=== PATIENT | female | born 1950 | race Caucasian/White ===

== ENCOUNTER 2016-11-14 14:55 | Emergency (ER) | payer OTHER, MEDICARE ==
[~2016-11-14] VITALS: Ht 147.3 cm; Wt 70.5 kg
[~2016-11-14 14:55] MED LIST: ALPH200C3 PO; B-COCAP9 PO; COZA50TA PO; CYCL1PAK PO; GLUCTAB PO; LEVA500T PO; LORTA5 PO; MAGN250T13 PO; TRAD5TAB PO; VITA-13 PO
[2016-11-14 15:17] VITALS: BP 139/75; PULSE 84; RESP 16; TEMP 98.7; O2SAT 96
[2016-11-14] MEDS ORDERED: MAGN250T2 PO (15:47)
[2016-11-14] MEDS ORDERED: B-COCAP9 PO (15:47)
[2016-11-14] MEDS ORDERED: METF500T4 PO (15:47)
[2016-11-14] MEDS ORDERED: LOSA50TA PO (15:47)
[2016-11-14] MEDS ORDERED: TRAD5TAB PO (15:47)
[2016-11-14] MEDS ORDERED: [UNRECOGNIZED DRUG - CODE] PO (15:48)
[2016-11-14] MEDS ORDERED: CHOL100025 CHEW (15:48)
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
== END 2016-11-14 17:30 | disposition home or self-care (01) ==
LOC: PHED 14:55
DX: S20.211A Contusion of right front wall of thorax, initial encounter (principal); V03.99XA Pedestrian with other conveyance injured in collision with car, pick-up truck or van, unspecified whether traffic or nontraffic accident, initial encounter; Y92.410 Unspecified street and highway as the place of occurrence of the external cause
CPT/HCPCS: 71010; 99283

== ENCOUNTER 2017-06-26 14:49 | Inpatient (IN) | payer MEDICARE, OTHER ==
[~2017-06-26] VITALS: Ht 144.8 cm; Wt 77.6 kg
[2017-06-26] VITALS (9 sets, daily range): BP systolic 136–152; BP diastolic 60–82; PULSE 80–90; RESP 16–24; TEMP 97.8–98.2; O2SAT 94–98
[~2017-06-26 14:49] MED LIST changes: -ALPH200C3 PO; +CHOL100025 CHEW; -COZA50TA PO; -CYCL1PAK PO; -GLUCTAB PO; -LEVA500T PO; -LORTA5 PO; +LOSA50TA PO; -MAGN250T13 PO; +MAGN250T2 PO; +METF500T4 PO; -VITA-13 PO; +[UNRECOGNIZED DRUG - CODE] PO
[2017-06-26] MEDS ORDERED: SODIUM CHLOR 0.9% 1000 ML INJ 1,000 ML IV ONE (14:52)
--- NOTE | 2017-06-26 15:00 | PD ---
HPI Chief Complaint: Neuro Symptoms/ Deficits Time Seen by Provider: 14:52 Travel History International Travel<30 days: No Contact w/Intl Traveler<30days: No Traveled to known affect area: No History of Present Illness HPI 67-year-old female patient with history of spina bifida, wheelchair bound, diabetes, hypertension, presents to the ER today brought in by EMS as a stroke alert, apparently has had a right arm weakness that started at about 1 PM. She apparently felt like she was having trouble speaking as well. She used her motorized wheelchair to get to the urgent care center and they called EMS. She has trouble moving both legs but that is chronic. She reports a headache but denies any other issues. She denies any previous history of right arm weakness. She does not know any exacerbating or alleviating factors. Modifying Factors: None Associated Signs & Symptoms: Right arm weakness, stroke alert Risk Factors: Diabetic, hypertension, spina bifida PFSH Past Medical History Hx Anticoagulant Therapy: No Arthritis: Yes Asthma: No Autoimmune Disease: No Blood Disorders: No Anxiety: No Depression: No Heart Rhythm Problems: No Cancer: No Cardiovascular Problems: Yes (htn on meds) High Cholesterol: No Chemotherapy: No Chest Pain: No Congestive Heart Failure: No COPD: No Cerebrovascular Accident: No Diabetes: Yes (type 2) Endocrine: Yes Gastrointestinal Disorders: Yes (UMBILICAL HERNIA) GERD: Yes Genitourinary: Yes Hepatitis: No Hiatal Hernia: No Hypertension: Yes Immune Disorder: No Kidney Stones: Yes Musculoskeletal: Yes (SCOLIOSIS, 10 VERTEBRAL FUSION, LEFT HIP DISLOCATION) Neurologic: Yes (SPINA BIFIDA) Psychiatric: No Reproductive: No Respiratory: No Migraines: No Radiation Therapy: No Renal Failure: No Seizures: No Sickle Cell Disease: No Sleep Apnea: No Thyroid Disease: No Ulcer: No Menopausal: Yes Past Surgical History Abdominal Surgery: Yes (APPENDECTOMY) AICD: No Appendectomy: Yes Arteriovenous Shunt: No Body Medical Devices: BILATERAL ANKLE ORIF Cardiac Surgery: No Ear Surgery: No Endocrine Surgery: No Eye Surgery: No Genitourinary Surgery: No Gynecologic Surgery: No Insulin Pump: No Joint Replacement: No Neurologic Surgery: Yes (BILATERAL CARPAL TUNNEL SURGERY, spina bifida SX as ) Oral Surgery: No Pacemaker: No Thoracic Surgery: No Other Surgery: Yes (LT WRIST CARPAL TUNNEL, left ankle fx with mary jane placement) Social History Alcohol Use: Yes (Social) Tobacco Use: No Substance Use: No Allergies-Medications (Allergen,Severity, Reaction): Coded Allergies: ciprofloxacin (Unverified Allergy, Severe, Diarrhea, 06/26/17) latex (Unverified Allergy, Severe, Rash, 06/26/17) tetanus immune globulin (Unverified Allergy, Severe, 06/26/17) ARM "BLEW UP", PAIN IN ARM cephalexin (Unverified Adverse Reaction, Intermediate, DIARRHEA, 06/26/17) Reported Meds & Prescriptions Reported Meds & Active Scripts Active Reported Lipoic Acid (Alpha Lipoic Acid) 150 Mg Cap 100 Mg PO DAILY Vitamin D3 (Cholecalciferol) 1,000 Unit Chew 1,000 Units CHEW DAILY Super B-Complex (B-Complex W/Biotin & Folic Acid) 1 Cap 1 Cap PO DAILY Magnesium 250 Mg Tab 250 Mg PO DAILY Metformin ER (Metformin HCl) 500 Mg Eric 500 Mg PO DAILY With evening meal Tradjenta (Linagliptin) 5 Mg Tab 5 Mg PO DAILY Losartan (Losartan Potassium) 50 Mg Tab 50 Mg PO DAILY Review of Systems Except as stated in HPI: all other systems reviewed are Neg Physical Exam Narrative GENERAL: Elderly white female patient who is wheelchair-bound, with atrophied bilateral lower extremities, currently awake, alert, oriented 3, in moderate distress. SKIN: Focused skin assessment warm/dry. HEAD: Atraumatic. Normocephalic. EYES: Pupils equal and round. No scleral icterus. No injection or drainage. ENT: No nasal bleeding or discharge. Mucous membranes pink and moist. NECK: Trachea midline. No JVD. CARDIOVASCULAR: Regular rate and rhythm. No murmur appreciated. Pulses are present and equal bilaterally. RESPIRATORY: No accessory muscle use. Clear to auscultation. Breath sounds equal bilaterally. GASTROINTESTINAL: Abdomen soft, non-tender, nondistended. Hepatic and splenic margins not palpable. MUSCULOSKELETAL: Bilateral lower extremity atrophy, bilateral pitting edema of the legs NEUROLOGICAL: Awake and alert. Hemiplegic, right sided pronator drift, unable to lift right arm. Normal speech. PSYCHIATRIC: Appropriate mood and affect; insight and judgment normal. Data Data Last Documented VS Vital Signs Date Time Temp Pulse Resp B/P (MAP) Pulse Ox O2 Delivery O2 Flow Rate FiO2 06/26/17 15:16 84 17 147/67 (93) 97 Room Air 06/26/17 15:06 21 06/26/17 14:51 97.8 Orders Orders Diet Npo (06/26/17 Dinner) Activity Bed Rest (06/26/17 ) Electrocardiogram (06/26/17 ) I-Stat Creatinine (06/26/17 14:52) I-Stat Profile (06/26/17 14:52) Prothrombin Time / Inr (Pt) (06/26/17 14:52) Act Partial Throm Time (Ptt) (06/26/17 14:52) Complete Blood Count With Diff (06/26/17 14:52) Fibrinogen (06/26/17 14:52) Creatine Kinase (Cpk) (06/26/17 14:52) Troponin I (06/26/17 14:52) Ua Includes Microscopic (06/26/17 14:52) Drug Screen, Random Urine (06/26/17 14:52) Type And Screen (06/26/17 14:52) Ct Brain W/O Iv Contrast(Rout) (06/26/17 ) Consult Neurology (06/26/17 ) Blood Glucose (06/26/17 14:52) Ecg Monitoring (06/26/17 14:52) Neuro Checks Q2HX12,Q4H (06/26/17 14:52) Nursing Bedside Swallow Assess .ONCE (06/26/17 14:52) Iv Access Insert/Monitor (06/26/17 14:52) NPO (06/26/17 14:52) Oximetry (06/26/17 14:52) Oxygen Administration (06/26/17 14:52) Sodium Chlor 0.9% 1000 Ml Inj (Ns 1000 M (06/26/17 14:52) Resp Oxygen [place] C Titrat 1-4 L (06/26/17 14:52) Cath For Specimen (06/26/17 14:52) Cta Brain W Iv Contrast W 3d (06/26/17 15:03) Cta Neck W Iv Contrast W 3d (06/26/17 15:03) ^ Call Pharmacy (06/26/17 15:16) Nih Stroke Scale - Nihss .ONCE (06/26/17 15:16) Urinary Catheter Insert/Apply (06/26/17 15:16) Anticoagulant Alert (06/26/17 15:16) ^ Post Infusion Restrictions (06/26/17 15:16) ^ Medication Alert (06/26/17 15:16) Vital Signs (Adult) .As directed (06/26/17 15:16) Notify Dr: Blood Pressure (06/26/17 15:16) ^ Medication Alert (06/26/17 15:16) Alteplase Bolus (Activase Bolus) (06/26/17 15:30) Alteplase Drip (Activase Drip) (06/26/17 15:30) Sodium Chloride 0.9% Inj (Ns Inj) (06/26/17 15:30) [facility] (06/26/17 15:30) Resp Oxygen [place] C Titrat 1-4 L (06/26/17 ) Ct Brain W/O Iv Contrast(Rout) (06/27/17 ) (Hub Use Only)Inp Phy Cons/Ref (06/26/17 ) Admit Order (Ed Use Only) (06/26/17 15:50) Labs Laboratory Tests Test 06/26/17 14:48 White Blood Count 14.3 TH/MM3 Red Blood Count 4.65 MIL/MM3 Hemoglobin 13.9 GM/DL Bedside Hemoglobin 14.6 G/DL Hematocrit 42.5 % Bedside Hematocrit 43.0 % Mean Corpuscular Volume 91.3 FL Mean Corpuscular Hemoglobin 29.9 PG Mean Corpuscular Hemoglobin Concent 32.7 % Red Cell Distribution Width 13.2 % Platelet Count 330 TH/MM3 Mean Platelet Volume 7.7 FL Neutrophils (%) (Auto) 72.1 % Lymphocytes (%) (Auto) 16.7 % Monocytes (%) (Auto) 7.2 % Eosinophils (%) (Auto) 2.7 % Basophils (%) (Auto) 1.3 % Neutrophils # (Auto) 10.3 TH/MM3 Lymphocytes # (Auto) 2.4 TH/MM3 Monocytes # (Auto) 1.0 TH/MM3 Eosinophils # (Auto) 0.4 TH/MM3 Basophils # (Auto) 0.2 TH/MM3 CBC Comment DIFF FINAL Differential Comment Prothrombin Time 10.2 SEC Prothromb Time International Ratio 0.9 RATIO Activated Partial Thromboplast Time 26.8 SEC Fibrinogen 424 mg/dL Bedside Sodium 141 MMOL/L Bedside Potassium 4.0 MMOL/L Bedside Chloride 101 MMOL/L Bedside Blood Urea Nitrogen 15 MG/DL Bedside Creatinine 0.6 MG/DL Bedside Glucose 193 MG/DL [facility] Medical Screen Exam Complete: Yes Emergency Medical Condition: Yes Medical Record Reviewed: Yes Differential Diagnosis Stroke alert: Rule out intracranial bleed versus ischemic CVA versus metabolic issues Narrative Course CAT scan was discussed with Dr. Bonilla who states that the patient has significant hydrocephalus which can be related to the spina bifida, there is also signs of a old stroke but no signs of acute bleed or new stroke at this time. He states that the patient would also be a good CTA candidate for further evaluation. Case was discussed with Dr. Conn, who states that the patient would be a good TPA candidate. NIH stroke scale of 4. She has no significant hypertension and is not on any anticoagulants, does not have any contraindication, no ICH, no recent surgeries. TPA was ordered to be administered. At this point, my plan would be to admit her to case work aide for further treatment. Case is discussed with Dr. Abdi for admission. Critical Care Narrative Aggregate critical care time was 30 minutes. Time to perform other separately billable procedures was not included in the critical care time. My time did not include minutes spent treating any other patients simultaneously or on activities that did not directly contribute to the patient's treatment. The services I provided to this patient were to treat and/or prevent clinically significant deterioration that could result in: TPA, ICH, worsening CVA, I provided critical care services requiring my management, as noted below: Chart data review, documentation time, medication orders and management, vital sign assessments/reviewing monitor data, ordering and reviewing lab tests, ordering and interpreting/reviewing x-rays and diagnostic studies, care of the patient and discussion of the patient with the admitting physicians. Stroke Alert NIHSS NIH Stroke Scale Result: 4 NIHSS Time Completed: 15:15 Diagnosis Diagnosis: Primary Impression: Stroke aborted by administration of thrombolytic agent Admitting Physician Requests: Admit Galina Taylor MD Jun 26, 2017 15:00
--- NOTE | 2017-06-26 15:07 | RADRPT ---
EXAM DATE/TIME: 06/26/2017 14:52 [facility] COMPARISON: No previous studies available for comparison. INDICATIONS : Stroke alert. Right sided weakness. Right facial droop. RADIATION DOSE: 56.35 CTDIvol (mGy) This report was called by Dr. Bonilla to Dr. Taylor at 1504 MEDICAL HISTORY : Hypertension. Diabetes mellitus type 2. Spina bifida. SURGICAL HISTORY : Appendectomy. ENCOUNTER: Initial ACUITY: 1 day PAIN SCALE: 0/10 LOCATION: cranial TECHNIQUE: Multiple contiguous axial images were obtained of the head. Using automated exposure control and adj ustment of the mA and/or kV according to patient size, radiation dose was kept as low as reasonably a chievable to obtain optimal diagnostic quality images. DICOM format image data is available electro nically for review and comparison. FINDINGS: CEREBRUM: Ventricles are diffusely and markedly prominent.. No evidence of midline shift, mass lesion, hemorrh age or acute infarction. Old lacunar type infarct in the left centrum semiovale No extra-axial fluid collections are seen. POSTERIOR FOSSA: The cerebellum and brainstem are intact. The 4th ventricle is midline. The cerebellopontine angle i s unremarkable. EXTRACRANIAL: The visualized portion of the orbits is intact. SKULL: The calvaria is intact. No evidence of skull fracture. CONCLUSION: 1. Chronic changes with a punctate old lacunar type infarct in the left centrum semiovale. 2. Ventricular prominence. Findings are nonspecific and can be seen in entity such as normal pressure hydrocephalus although a fourth ventricle obstruction cannot be excluded. Fourth ventricle appears t o be normal in diameter. 3. Nothing acute. Braulio Bonilla MD on June 26, 2017 at 15:01 Board Certified Radiologist. This report was verified electronically.
[2017-06-26 15:21] LABS: AUTOMATED NEUTROPHIL # 10.3 TH/MM3 (1.8-7.7); BASOPHIL # 0.2 TH/MM3 (0-0.2); BASOPHIL % 1.3 % (0.0-2.0); EOSINOPHIL # 0.4 TH/MM3 (0-0.4); EOSINOPHIL % 2.7 % (0.0-4.0); HEMATOCRIT 42.5 % (35.0-46.0); HEMO FLAGS DIFF FINAL; LYMPH % 16.7 % (9.0-44.0); LYMPHOCYTE # 2.4 TH/MM3 (1.0-4.8); MEAN CELL VOLUME 91.3 FL (80.0-100.0); MEAN CORPUSCULAR HEMOGLOBIN 29.9 PG (27.0-34.0); MEAN CORPUSCULAR HGB CONC 32.7 % (32.0-36.0); MONO % 7.2 % (0.0-8.0); NEUT % 72.1 % (16.0-70.0); PLATELET COUNT 330 TH/MM3 (150-450); RED BLOOD COUNT 4.65 MIL/MM3 (4.00-5.30); RED CELL DISTRIBUTION WIDTH 13.2 % (11.6-17.2); WHITE BLOOD COUNT 14.3 TH/MM3 (4.0-11.0)
[2017-06-26 15:29] LABS: APTT (PATIENT) 26.8 SEC (24.3-30.1); INTERNATIONAL NORMALIZED RATIO 0.9 RATIO; PROTHROMBIN TIME - PATIENT 10.2 SEC (9.8-11.6)
[2017-06-26 15:30] LABS: I-STAT SODIUM 141 MMOL/L (138-146)
[2017-06-26] MEDS ORDERED: MISCELLANEOUS NURSING INFORMATION XX PRN (15:30)
[2017-06-26] MEDS ORDERED: SODIUM CHLORIDE 0.9% 50 ML BAG IVF ONE (15:30)
[2017-06-26] MEDS ORDERED: ALTEPLASE BOLUS 9 MG/9 ML SYR IV ONE (15:30)
[2017-06-26] MEDS ORDERED: ALTEPLASE DRIP 60.5 MG in SYRINGE/BAG 1 EA IV ONE (15:30)
[2017-06-26] MEDS ORDERED: ALPH1CAP2 PO (15:51)
[2017-06-26] MEDS ORDERED: MAGN250T11 PO (15:51)
[2017-06-26 15:52] LABS: CREATINE KINASE 28 U/L (26-192)
--- NOTE | 2017-06-26 16:14 | PD.CONS ---
History of Present Illness Service Neurology Consult Requested By er Reason for Consult stroke alert Primary Care Physician Otoniel Patino MD History of Present Illness 67yF with history of spina bifida, wheelchair bound, presents as a stroke alert. symptom onset approximately 2 hr prior to pt arrival.acute onset of rt arm weakness and slurred speech. ct brain showing hydrocephalus, no ich. glucose 193. iv tpa offered with r/b, 6 % change of ich. pt accepted tx. iv tpa given. Review of Systems as above and admit hp Past Family Social History Allergies: Coded Allergies: ciprofloxacin (Unverified Allergy, Severe, Diarrhea, 06/26/17) latex (Unverified Allergy, Severe, Rash, 06/26/17) tetanus immune globulin (Unverified Allergy, Severe, 06/26/17) cephalexin (Unverified Adverse Reaction, Intermediate, DIARRHEA, 06/26/17) Past Medical History Arthritis HTN Type 2 DM Umbilical Hernia Scoliosis s/p 10 level vertebral fusion Spina Bifida Left hip dislocation Past Surgical History Appendectomy Bilateral ankle ORIF Bilateral carpal tunnel surgery Spina Bifida surgery as infant Reported Medications Lipoic Acid (Alpha Lipoic Acid) 150 Mg Cap 100 Mg PO DAILY Vitamin D3 (Cholecalciferol) 1,000 Unit Chew 1,000 Units CHEW DAILY Super B-Complex (B-Complex W/Biotin & Folic Acid) 1 Cap 1 Cap PO DAILY Magnesium 250 Mg Tab 250 Mg PO DAILY Metformin ER (Metformin HCl) 500 Mg Eric 500 Mg PO DAILY With evening meal Tradjenta (Linagliptin) 5 Mg Tab 5 Mg PO DAILY Losartan (Losartan Potassium) 50 Mg Tab 50 Mg PO DAILY Active Ordered Medications See MAR Family History reviewed and found to be noncontributory to her acute illness Social History + social etoh use. - tob Review of Systems All other ROS: ROS reviewed as documented in chart Past Family Social History Allergies: Coded Allergies: ciprofloxacin (Unverified Allergy, Severe, Diarrhea, 06/26/17) latex (Unverified Allergy, Severe, Rash, 06/26/17) tetanus immune globulin (Unverified Allergy, Severe, 06/26/17) ARM "BLEW UP", PAIN IN ARM cephalexin (Unverified Adverse Reaction, Intermediate, DIARRHEA, 06/26/17) Active Ordered Medications Current Medications Medications (Trade) Dose Ordered Sig/Isaac Route Start Time Stop Time Status Last Admin Sodium Chloride 1,000 ml @ 70 mls/hr [id number] ONCE IV 06/26/17 14:52 06/27/17 05:09 06/26/17 15:40 Alteplase, Recombinant 60.5 mg/Syringe / Bag 60.5 ml @ 60.5 mls/hr ONCE ONCE IV 06/26/17 15:30 06/26/17 16:29 06/26/17 15:35 Miscellaneous Information No Heparin, Warfarin, Aspir... UNSCH PRN XX 06/26/17 15:30 06/27/17 15:29 Exam I&O / VS Vital Signs Date Time Temp Pulse Resp B/P (MAP) Pulse Ox O2 Delivery O2 Flow Rate FiO2 06/26/17 15:16 84 17 147/67 (93) 97 Room Air 06/26/17 15:06 87 16 147/82 (103) 95 Room Air 21 06/26/17 15:04 97 21 06/26/17 15:00 97 Room Air 06/26/17 15:00 18 97 Room Air 06/26/17 14:55 86 18 97 06/26/17 14:53 97 21 06/26/17 14:51 97.8 86 18 136/64 (88) 97 General: Alert and Oriented, No acute distress Eye: EOMI Respiratory: Non-labored respirations Neurologic: Alert Psychiatric: Cooperative Exam Comments alert, mildly dysarthric speech, eomi, face sym, rt ue drift and mild dystaxia, paraplegia, Review/Management Diagnosis/Plan: (1) Stroke aborted by administration of thrombolytic agent ICD Codes: I63.9 - Cerebral infarction, unspecified Status: Acute Plan: s/p iv tpa recs carotid/mra brain/echo lipid panel post-iv tpa order set bp <180/100 at all times scd's repeat ct brain (2) Spina bifida ICD Codes: Q05.9 - Spina bifida, unspecified Status: Chronic (3) Paraplegia ICD Codes: G82.20 - Paraplegia, unspecified Status: Chronic Sal Conn MD Jun 26, 2017 16:14
[2017-06-26] MEDS ORDERED: POTASSIUM PHOSPHATE MONOBASIC 500 MG TAB PO/TUBE PRN (16:15)
[2017-06-26] MEDS ORDERED: POTASSIUM CHLOR 40 MEQ PREMIX 100 ML IV PRN ×2 (16:15)
[2017-06-26] MEDS ORDERED: hydrALAZINE HCL 20 MG/ML VIAL IV PUSH PRN (16:15)
[2017-06-26] MEDS ORDERED: MAGNESIUM SULFATE INJ 2 GM in SODIUM CHLORIDE 0.9% INJ 96 ML IV PRN (16:15)
[2017-06-26] MEDS ORDERED: MAGNESIUM OXIDE 400 MG TAB PO PRN (16:15)
[2017-06-26] MEDS ORDERED: POTASSIUM CHLOR 20 MEQ PREMIX 100 ML IV PRN ×2 (16:15)
[2017-06-26] MEDS ORDERED: ONDANSETRON HCL 4 MG/2 ML VIAL IV PUSH PRN (16:15)
[2017-06-26] MEDS ORDERED: RESP: ALBUTEROL 2.5 MG/IPRATROPIUM 0.5 MG NEB (PRN) INH (16:15)
[2017-06-26] MEDS ORDERED: SODIUM PHOSPHATE INJ 30 MMOL in SODIUM CHLOR 0.9% 250 ML INJ 240 ML IV PRN (16:15)
[2017-06-26] MEDS ORDERED: MAGNESIUM SULFATE INJ 4 GM in SODIUM CHLORIDE 0.9% INJ 92 ML IV PRN (16:15)
[2017-06-26] MEDS ORDERED: CHLORHEXIDINE GLUCONATE 2 % 1 PACK (2 CLOTHS) TOP PRN (16:15)
[2017-06-26] MEDS ORDERED: POTASSIUM PHOSPHATE INJ 30 MMOL in SODIUM CHLOR 0.9% 250 ML INJ 250 ML IV PRN (16:15)
[2017-06-26] MEDS ORDERED: POTASSIUM PHOSPHATE MONOBASIC 500 MG TAB PO PRN (16:15)
[2017-06-26] MEDS ORDERED: MISCELLANEOUS NURSING INFORMATION XX SCH (16:15)
[2017-06-26] MEDS ORDERED: LABETALOL HCL 100 MG/20 ML VIAL IV PUSH PRN (16:15)
[2017-06-26] MEDS ORDERED: DEXTROSE 50% IN WATER 50 ML VIAL(D50) IV PUSH PRN (16:15)
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
[2017-06-26] MEDS: INSULIN NovoLIN REGULAR SUPPLEMENTAL SCALE SQ SCH ×2 (17:00→21:00)
[2017-06-26] MEDS: SODIUM CHLOR 0.9% 1000 ML INJ 1,000 ML IV SCH (18:00)
[2017-06-26 18:50] LABS: HEMOGLOBIN A1a 1.2 %; HEMOGLOBIN A1b 2.4 %; HEMOGLOBIN Ao 80.6 %; HEMOGLOBIN P3 4.9 %
[2017-06-26 18:54] LABS: HDL CHOLESTEROL 45.4 MG/DL (40.0-60.0)
[2017-06-26] MEDS: DOCUSATE SODIUM 50 MG/SENNA 8.6 MG TAB PO SCH (20:56)
[2017-06-26] MEDS: ACETAMINOPHEN 325 MG TAB PO PRN (21:12)
[2017-06-27] VITALS (13 sets, daily range): BP systolic 99–144; BP diastolic 49–76; PULSE 76–109; RESP 20–26; TEMP 97.7–98.5; O2SAT 92–96
[2017-06-27 01:23] LABS: HDL CHOLESTEROL 38.6 MG/DL (40.0-60.0)
[2017-06-27 01:35] LABS: BICARBONATE 25.5 MEQ/L (21.0-32.0)
[2017-06-27] MEDS: INSULIN NovoLIN REGULAR SUPPLEMENTAL SCALE SQ SCH ×5 (03:00→20:39)
[2017-06-27] MEDS: CHLORHEXIDINE GLUCONATE 2 % 1 PACK (2 CLOTHS) TOP SCH (04:00)
[2017-06-27 04:46] LABS: HEMATOCRIT 37.7 % (35.0-46.0); MEAN CELL VOLUME 91.2 FL (80.0-100.0); MEAN CORPUSCULAR HEMOGLOBIN 29.9 PG (27.0-34.0); MEAN CORPUSCULAR HGB CONC 32.8 % (32.0-36.0); PLATELET COUNT 271 TH/MM3 (150-450); RED BLOOD COUNT 4.13 MIL/MM3 (4.00-5.30); RED CELL DISTRIBUTION WIDTH 13.1 % (11.6-17.2); REVIEW FLAG FINAL; WHITE BLOOD COUNT 11.2 TH/MM3 (4.0-11.0)
[2017-06-27] MEDS: SODIUM CHLOR 0.9% 1000 ML INJ 1,000 ML IV SCH ×2 (06:17→17:50)
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
[2017-06-27] MEDS: DOCUSATE SODIUM 50 MG/SENNA 8.6 MG TAB PO SCH ×2 (09:00→20:26)
--- NOTE | 2017-06-27 17:12 | ECHRPT ---
Indication: CVA/TIA CONCLUSIONS Normal left ventricular size. Wall thickness is normal. The left ventricular systolic function is low normal with an estimated ejection fraction in the rang e of 50- 55%. Trace aortic valve regurgitation. BP: 109 / 57 HR: 84 Rhythm: Sinus MEASUREMENTS (Male / Female) Normal Values Technical Quality:Technically difficult study 2D ECHO LV Diastolic Diameter PLAX 4.2 cm 4.2 - 5.9 / 3.9 - 5.3 cm LV Systolic Diameter PLAX 3.3 cm IVS Diastolic Thickness 1.2 cm 0.6 - 1.0 / 0.6 - 0.9 cm LVPW Diastolic Thickness 0.7 cm 0.6 - 1.0 / 0.6 - 0.9 cm LV Relative Wall Thickness 0.4 LA Systolic Diameter LX 3.3 cm 3.0 - 4.0 / 2.7 - 3.8 cm M-MODE Aortic Root Diameter MM 2.7 cm AV Cusp Separation MM 1.7 cm DOPPLER Mitral E Point Velocity 74.5 cm/s Mitral A Point Velocity 104.0 cm/s Mitral E to A Ratio 0.7 TR Peak Velocity 157.0 cm/s TR Peak Gradient 9.9 mmHg Right Atrial Pressure 5.0 mmHg Pulmonary Artery Systolic Pressu 14.9 mmHg Right Ventricular Systolic Press 14.9 mmHg FINDINGS LEFT VENTRICLE Normal left ventricular size. Wall thickness is normal. The left ventricular systolic function is low normal with an estimated ejection fraction in the rang e of 50- 55%. RIGHT VENTRICLE Normal right ventricular size and systolic function. LEFT ATRIUM The left atrial size is normal. RIGHT ATRIUM The right atrial size is normal. ATRIAL SEPTUM Normal atrial septal thickness without atrial level shunting by limited color doppler interrogation. AORTA The aortic root and proximal ascending aorta are normal in size on limited imaging. MITRAL VALVE Structurally normal mitral valve. No mitral valve stenosis or regurgitation. AORTIC VALVE Trace aortic valve regurgitation. TRICUSPID VALVE The tricuspid valve is not well visualized. PULMONARY VALVE No pulmonary valve regurgitation or stenosis. VESSELS The inferior vena cava is normal in size. PERICARDIUM A prominent epicardial fat pad is present. Dot Boston MD, FACC (Electronically Signed) Final Date:27 June 2017 17:11
--- NOTE | 2017-06-27 17:53 | RADRPT ---
EXAM DATE/TIME: 06/27/2017 16:22 [facility] COMPARISON: CT BRAIN W/O CONTRAST, June 26, 2017, 14:52. INDICATIONS : Post TPA given 24 hours prior. RADIATION DOSE: 51.16 CTDIvol (mGy) MEDICAL HISTORY : Hypertension. Spina Bifida. SURGICAL HISTORY : None. ENCOUNTER: Initial ACUITY: 1 day PAIN SCALE: 3/10 LOCATION: Bilateral cranial TECHNIQUE: Multiple contiguous axial images were obtained of the head. Using automated exposure control and adj ustment of the mA and/or kV according to patient size, radiation dose was kept as low as reasonably a chievable to obtain optimal diagnostic quality images. DICOM format image data is available electro nically for review and comparison. FINDINGS: CEREBRUM: Again seen are the prominent ventricles out of proportion to sulcal dilatation stable in the short in terval. There is no parenchymal hemorrhage. There are no extra-axial fluid collections appreciated. POSTERIOR FOSSA: The cerebellum and brainstem are intact. The 4th ventricle is midline. The cerebellopontine angle i s unremarkable. EXTRACRANIAL: The visualized portion of the orbits is intact. SKULL: The calvaria is intact. No evidence of skull fracture. CONCLUSION: Hydrocephalus, ventricles are proportion to sulcal dilatation. MRI is pending. Iam Shields MD FACR on June 27, 2017 at 17:51 Board Certified Radiologist. This report was verified electronically.
--- NOTE | 2017-06-27 17:56 | RADRPT ---
EXAM DATE/TIME: 06/27/2017 16:32 [facility] COMPARISON: No previous studies available for comparison. INDICATIONS : Right sided weakness. Post TPA. MEDICAL HISTORY : Hypertension. Diabetes mellitus type 2. Spinabifida SURGICAL HISTORY : Appendectomy. Carpal tunnel syndrome. spinal surgeries, ankle surgery ENCOUNTER: Subsequent ACUITY: 2 day PAIN SCORE: 0/10 LOCATION: cranial TECHNIQUE: Multiplanar, multisequence MRI of the brain was performed without contrast. FINDINGS: CEREBRUM: Ventricles are dilated out of proportion to sulcal dilatation mild periventricular fluid migration. Old lacunar infarct is seen basalganglia left side. There is no restricted diffusion. The third gauri tricle is mildly prominent. Fourth ventricle is normal size. There are no extra-axial fluid collect ions appreciated. POSTERIOR FOSSA: Normal fourth ventricle and posterior fossa. There is no Chiari malformation. EXTRACRANIAL: Orbits and paranasal sinuses are unremarkable. CONCLUSION: Abnormal MRI dilatation the superolateral ventricles without other evidence for elevated pressures. CSF intensity is homogeneous. These findings would suggest central atrophy. Hydrocephalus cannot be excluded. Correlation with the old films would be most helpful Iam Shields MD FACR on June 27, 2017 at 17:52 Board Certified Radiologist. This report was verified electronically.
--- NOTE | 2017-06-27 21:00 | EKG ---
Date Performed: 06/26/2017 Time Performed: 15:11:16 PTAGE: 67 years EKG: Sinus rhythm INDETERMINATE AXIS ABNORMAL ECG PREVIOUS TRACING : 06/21/2015 06.47 Compared to prior tracing no significant change DOCTOR: Dmitriy Spaulding Interpretating Date/Time 06/27/2017 20:51:43
[2017-06-27] MEDS: HEPARIN SODIUM - SQ 10,000 UNITS/ML VIAL SQ SCH (21:57)
--- NOTE | 2017-06-27 23:38 | RADRPT ---
EXAM DATE/TIME: 06/27/2017 22:21 [facility] COMPARISON: No previous studies available for comparison. INDICATIONS : CVA. MEDICAL HISTORY : Diabetes mellitus type 2. Hypertension. Spinal bifida. SURGICAL HISTORY : Appendectomy. Spinal Sx, Ankle Sx, Carpel tunnel sx. ENCOUNTER: Subsequent ACUITY: 2 day PAIN SCORE: 3/10 LOCATION: Bilateral cranial Please note a normal MRA of the brain does not entirely exclude the possibility of a small aneurysm, nor the possibility of distal intracranial vessel disease. TECHNIQUE: 3D time of flight MRA was performed. Source images, multiplanar STS MIP, and 3D volume MIP reconstru ctions were reviewed. FINDINGS: There is excellent visualization of the major intracranial arteries out to the second-order branch ve ssels. There is no evidence for aneurysm, vessel truncation or stenosis, and no evidence for vascula r malformation. CONCLUSION: No acute disease. Navneet Nava MD on June 27, 2017 at 23:35 Board Certified Radiologist. This report was verified electronically.
[2017-06-27] MEDS: ACETAMINOPHEN 325 MG TAB PO PRN (23:41)
--- NOTE | 2017-06-27 23:42 | RADRPT ---
EXAM DATE/TIME: 06/27/2017 22:52 [facility] COMPARISON: No previous studies available for comparison. INDICATIONS : Cerebrovascular accident. MEDICAL HISTORY : Hypertension. Diabetes mellitus type 2. Hernia, umbilical. Spina bifida. Scoliosis. Arthritis. Kidney stones. SURGICAL HISTORY : Appendectomy. Carpal tunnel surgery left wrist. 10 vertebral fusion. Right ankle fusion. ENCOUNTER: Initial ACUITY: 2 days PAIN SCORE: 0/10 LOCATION: Bilateral neck PEAK SYSTOLIC VELOCITIES (cm/sec): ICA/CCA RATIO: Right: 1.9 Left: 1.4 ICA: Right: 98 Left: 95 CCA: Right: 61 Left: 67 ECA: Right: 85 Left: 69 VERTEBRAL: Right: 44 antegrade Left: 53 antegrade Elevated flow velocities and ICA/CCA ratios have been found to correlate with increased degrees of vessel stenosis, calculated as percentage of diameter relative to a normal segment of distal ICA/CCA FINDINGS: RIGHT CAROTID: No significant stenosis is visualized. The waveforms are within normal limits. LEFT CAROTID: No significant stenosis is visualized. The waveforms are within normal limits. VERTEBRAL ARTERIES: Antegrade flow is seen in both vertebral arteries. MISCELLANEOUS: None. CONCLUSION: 1. Patent carotid arteries bilaterally. 2. Antegrade flow involving both vertebral arteries. Gerhard Long Jr., MD on June 27, 2017 at 23:38 Board Certified Radiologist. This report was verified electronically.
[2017-06-28] VITALS (7 sets, daily range): BP systolic 129–191; BP diastolic 63–82; PULSE 74–91; RESP 16–23; TEMP 97.6–98.8; O2SAT 95–98
[2017-06-28] MEDS: INSULIN NovoLIN REGULAR SUPPLEMENTAL SCALE SQ SCH ×5 (03:00→22:11)
[2017-06-28] MEDS: CHLORHEXIDINE GLUCONATE 2 % 1 PACK (2 CLOTHS) TOP SCH (03:56)
[2017-06-28] MEDS: HEPARIN SODIUM - SQ 10,000 UNITS/ML VIAL SQ SCH ×3 (05:10→22:10)
[2017-06-28] MEDS: SODIUM CHLOR 0.9% 1000 ML INJ 1,000 ML IV SCH ×2 (05:12→17:40)
[2017-06-28 05:15] LABS: HEMATOCRIT 38.7 % (35.0-46.0); MEAN CORPUSCULAR HEMOGLOBIN 29.8 PG (27.0-34.0); MEAN CORPUSCULAR HGB CONC 32.4 % (32.0-36.0); PLATELET COUNT 275 TH/MM3 (150-450); RED BLOOD COUNT 4.21 MIL/MM3 (4.00-5.30); RED CELL DISTRIBUTION WIDTH 13.1 % (11.6-17.2); REVIEW FLAG FINAL; WHITE BLOOD COUNT 10.4 TH/MM3 (4.0-11.0)
[2017-06-28 05:44] LABS: BICARBONATE 25.1 MEQ/L (21.0-32.0); POTASSIUM 3.5 MEQ/L (3.5-5.1)
[2017-06-28] MEDS: ACETAMINOPHEN 325 MG TAB PO PRN ×2 (06:59→22:10)
[2017-06-28] MEDS: DOCUSATE SODIUM 50 MG/SENNA 8.6 MG TAB PO SCH ×2 (08:35→22:11)
[2017-06-28] MEDS: ASPIRIN EC 325 MG TABEC PO SCH (08:37)
--- NOTE | 2017-06-28 09:06 | HHI.PR ---
Review/Management Diagnosis/Plan: (1) Stroke aborted by administration of thrombolytic agent ICD Codes: I63.9 - Cerebral infarction, unspecified Status: Acute Plan: + stroke tiny lacune image on dwi and flair s/p iv tpa mra brain/carotids nml echo nml ef recs bp control, target 120/80 aspirin/statin p.t. d/w pt d/c home from neurology and outpatient f/u in 2 weeks (2) Spina bifida ICD Codes: Q05.9 - Spina bifida, unspecified Status: Chronic (3) Paraplegia ICD Codes: G82.20 - Paraplegia, unspecified Status: Chronic (4) HTN (hypertension) ICD Codes: I10 - Essential (primary) hypertension Status: Chronic Subjective Subjective Comments No acute events reported no hx of dvt/afib; no use of antiplatelet agent before No headache No chest pain No dyspnea Active Medications Current Medications Medications (Trade) Dose Ordered Sig/Isaac Route Start Time Stop Time Status Last Admin (Trandate Inj) 20 mg Q15M PRN IV PUSH 06/26/17 16:15 (Apresoline Inj) 10 mg Q30M PRN IV PUSH 06/26/17 16:15 (Mag-Ox) 800 mg UNSCH PRN PO 06/26/17 16:15 Magnesium Sulfate 4 gm/Sodium Chloride 100 ml @ 50 mls/hr UNSCH PRN IV 06/26/17 16:15 Magnesium Sulfate 2 gm/Sodium Chloride 100 ml @ 50 mls/hr UNSCH PRN IV 06/26/17 16:15 Potassium Chloride 100 ml @ 50 mls/hr Q2H PRN IV 06/26/17 16:15 Potassium Chloride 100 ml @ 50 mls/hr Q2H PRN IV 06/26/17 16:15 Potassium Chloride 100 ml @ 50 mls/hr Q2H PRN IV 06/26/17 16:15 Potassium Chloride 100 ml @ 25 mls/hr UNSCH PRN IV 06/26/17 16:15 (K-Phos) 2,000 mg Q4H PRN PO 06/26/17 16:15 (K-Phos) 2,000 mg UNSCH PRN PO/TUBE 06/26/17 16:15 Potassium Phosphate 30 mmol/ Sodium Chloride 260 ml @ 42 mls/hr UNSCH PRN IV 06/26/17 16:15 Sodium Phosphate 30 mmol/Sodium Chloride 250 ml @ 42 mls/hr UNSCH PRN IV 06/26/17 16:15 (D50w (Vial) Inj) 25 ml UNSCH PRN IV PUSH 06/26/17 16:15 (NovoLIN R SUPPLEMENTAL SCALE) 1 ACHS AND 3AM SQ 06/26/17 17:00 Sodium Chloride 1,000 ml @ 84 mls/hr [id number] IV 06/26/17 18:00 06/28/17 05:12 (Tylenol) 650 mg Q6H PRN PO 06/26/17 16:15 06/28/17 06:59 (Zofran Inj) 4 mg Q6H PRN IV PUSH 06/26/17 16:15 (Duoneb Neb) 1 ampule Q2HR NEB PRN INH 06/26/17 16:15 06/27/17 08:28 Miscellaneous Information 1 Q361D XX 06/26/17 16:15 06/26/17 16:15 (Chlorhexidine 2% Cloth) 3 pack Taper DAILY@04 TOP 06/27/17 04:00 06/23/18 03:59 (Chlorhexidine 2% Cloth) 3 pack UNSCH PRN TOP 06/26/17 16:15 (Dot-Colace) 1 tab BID PO 06/26/17 21:00 06/26/17 20:56 (Heparin Inj) 5,000 units Q8HR SQ 06/27/17 22:00 06/28/17 05:10 (Ecotrin Ec) 325 mg DAILY PO 06/28/17 09:00 06/28/17 08:37 Allergies Allergies Coded Allergies ciprofloxacin (Unverified Allergy, Severe, Diarrhea, 06/26/17) latex (Unverified Allergy, Severe, Rash, 06/26/17) tetanus immune globulin (Unverified Allergy, Severe, 06/26/17) cephalexin (Unverified Adverse Reaction, Intermediate, DIARRHEA, 06/26/17) Review of Systems All other ROS: ROS reviewed as documented in chart Exam I&O / VS Vital Signs Date Time Temp Pulse Resp B/P (MAP) Pulse Ox O2 Delivery O2 Flow Rate FiO2 06/28/17 08:49 97.6 74 17 186/82 (116) 97 06/28/17 06:15 98.0 81 18 176/80 (112) 96 06/28/17 04:00 98.8 74 23 129/63 (85) 97 06/28/17 04:00 74 06/28/17 03:55 22 06/28/17 00:00 97.8 86 22 162/71 (101) 98 06/28/17 00:00 86 06/27/17 20:00 100 06/27/17 20:00 97.8 100 24 141/65 (90) 94 06/27/17 18:00 101 06/27/17 16:00 96 06/27/17 16:00 98.5 96 26 144/76 (98) 93 06/27/17 14:00 109 06/27/17 12:32 95 21 06/27/17 12:00 100 06/27/17 12:00 98.1 100 25 137/65 (89) 94 06/27/17 10:00 94 General: Alert and Oriented, No acute distress Eye: EOMI Respiratory: Non-labored respirations Neurologic: Alert Psychiatric: Cooperative Exam Comments alert, ox 3, eating breakfast,speech clear, eomi, face sym, 5/5 ue, no dystaxia paraplegia, Objective Micro and Labs Laboratory Tests Test 06/28/17 04:06 White Blood Count 10.4 Red Blood Count 4.21 Hemoglobin 12.5 Hematocrit 38.7 Mean Corpuscular Volume 92.0 Mean Corpuscular Hemoglobin 29.8 Mean Corpuscular Hemoglobin Concent 32.4 Red Cell Distribution Width 13.1 Platelet Count 275 Mean Platelet Volume 7.7 Blood Urea Nitrogen 14 Creatinine 0.60 Random Glucose 127 Calcium Level 8.3 Sodium Level 145 Potassium Level 3.5 Chloride Level 112 Carbon Dioxide Level 25.1 Anion Gap 8 Estimat Glomerular Filtration Rate 100 Sal Conn MD Jun 28, 2017 09:06
[2017-06-28] MEDS ORDERED: cloNIDine HCL 0.1 MG TAB PO PRN (09:30)
--- NOTE | 2017-06-28 12:57 | HHI.HP ---
History of Present Illness Primary Care Physician Otoniel Patino MD Admission Diagnosis stroke alert/TPA Diagnoses: Past Family Social History Allergies: Coded Allergies: ciprofloxacin (Unverified Allergy, Severe, Diarrhea, 06/26/17) latex (Unverified Allergy, Severe, Rash, 06/26/17) tetanus immune globulin (Unverified Allergy, Severe, 06/26/17) ARM "BLEW UP", PAIN IN ARM cephalexin (Unverified Adverse Reaction, Intermediate, DIARRHEA, 06/26/17) Physical Exam Vital Signs Vital Signs Date Time Temp Pulse Resp B/P (MAP) Pulse Ox O2 Delivery O2 Flow Rate FiO2 06/28/17 11:00 97.7 77 18 151/67 (95) 95 06/28/17 08:49 97.6 74 17 186/82 (116) 97 06/28/17 06:15 98.0 81 18 176/80 (112) 96 06/28/17 04:00 98.8 74 23 129/63 (85) 97 06/28/17 04:00 74 06/28/17 03:55 22 06/28/17 00:00 97.8 86 22 162/71 (101) 98 06/28/17 00:00 86 06/27/17 20:00 100 06/27/17 20:00 97.8 100 24 141/65 (90) 94 06/27/17 18:00 101 06/27/17 16:00 96 06/27/17 16:00 98.5 96 26 144/76 (98) 93 06/27/17 14:00 109 Physical Exam GENERAL: This is a well-nourished, well-developed patient, in no apparent distress. SKIN: No rashes, ecchymoses or lesions. Cool and dry. HEAD: Atraumatic. Normocephalic. No temporal or scalp tenderness. EYES: Pupils equal round and reactive. Extraocular motions intact. No scleral icterus. No injection or drainage. ENT: Nose without bleeding, purulent drainage or septal hematoma. Throat without erythema, tonsillar hypertrophy or exudate. Uvula midline. Airway patent. NECK: Trachea midline. No JVD or lymphadenopathy. Supple, nontender, no meningeal signs. CARDIOVASCULAR: Regular rate and rhythm without murmurs, gallops, or rubs. RESPIRATORY: Clear to auscultation. Breath sounds equal bilaterally. No wheezes , rales, or rhonchi. GASTROINTESTINAL: Abdomen soft, non-tender, nondistended. No hepato-splenomegaly , or palpable masses. No guarding. MUSCULOSKELETAL: Extremities without clubbing, cyanosis, or edema. No joint tenderness, effusion, or edema noted. No calf tenderness. Negative Homans sign bilaterally. NEUROLOGICAL: Awake and alert. Cranial nerves II through XII intact. Motor and sensory grossly within normal limits. Five out of 5 muscle strength in all muscle groups. Normal speech. Laboratory Laboratory Tests Test 06/28/17 04:06 White Blood Count 10.4 Red Blood Count 4.21 Hemoglobin 12.5 Hematocrit 38.7 Mean Corpuscular Volume 92.0 Mean Corpuscular Hemoglobin 29.8 Mean Corpuscular Hemoglobin Concent 32.4 Red Cell Distribution Width 13.1 Platelet Count 275 Mean Platelet Volume 7.7 Blood Urea Nitrogen 14 Creatinine 0.60 Random Glucose 127 Calcium Level 8.3 Sodium Level 145 Potassium Level 3.5 Chloride Level 112 Carbon Dioxide Level 25.1 Anion Gap 8 Estimat Glomerular Filtration Rate 100 Result Diagram: 06/28/1740506/28/176 Caprini VTE Risk Assessment Caprini VTE Risk Assessment: Mod/High Risk (score >= 2) VTE Pharm Contraindication: High risk for bleeding Caprini Risk Assessment Model Point Value = 1 Point Value = 2 Point Value = 3 Point Value = 5 Age 41-60 Minor surgery BMI > 25 kg/m2 Swollen legs Varicose veins or History of unexplained or recurrent spontaneous Oral contraceptives or hormone replacement Sepsis (< 1 month) Serious lung disease, including pneumonia (< 1 month) Abnormal pulmonary function Acute myocardial infarction Congestive heart failure (< 1 month) History of inflammatory bowel disease Medical patient at bed rest Age 61-74 Arthroscopic surgery Major open surgery (> 45 min) Laparoscopic surgery (> 45 min) Malignancy Confined to bed (> 72 hours) Immobilizing plaster cast Central venous access Age >= 75 History of VTE Family history of VTE Factor V Leiden Prothrombin [id number] Lupus anticoagulant Anticardiolipin antibodies Elevated serum homocysteine Heparin-induced thrombocytopenia Other congenital or acquired thrombophilia Stroke (< 1 month) Elective arthroplasty Hip, pelvis, or leg fracture Acute spinal cord injury (< 1 month) Prophylaxis Regimen Total Risk Factor Score Risk Level Prophylaxis Regimen 0-1 Low Early ambulation 2 Moderate Order ONE of the following: *Sequential Compression Device (SCD) *Heparin 5000 units SQ BID 3-4 Higher Order ONE of the following medications: *Heparin 5000 units SQ TID *Enoxaparin/Lovenox 40 mg SQ daily (WT < 150 kg, CrCl > 30 mL/min) *Enoxaparin/Lovenox 30 mg SQ daily (WT < 150 kg, CrCl > 10-29 mL/min) *Enoxaparin/Lovenox 30 mg SQ BID (WT < 150 kg, CrCl > 30 mL/min) AND/OR *Sequential Compression Device (SCD) 5 or more Highest Order ONE of the following medications: *Heparin 5000 units SQ TID (Preferred with Epidurals) *Enoxaparin/Lovenox 40 mg SQ daily (WT < 150 kg, CrCl > 30 mL/min) *Enoxaparin/Lovenox 30 mg SQ daily (WT < 150 kg, CrCl > 10-29 mL/min) *Enoxaparin/Lovenox 30 mg SQ BID (WT < 150 kg, CrCl > 30 mL/min) AND *Sequential Compression Device (SCD) Otoniel Patino MD Jun 28, 2017 12:57
[2017-06-28] MEDS ORDERED: ASPI325T33 PO (13:16)
[2017-06-28] MEDS ORDERED: CLON.1 PO (13:16)
[2017-06-28] MEDS ORDERED: TOPR25TA PO (13:17)
--- NOTE | 2017-06-28 13:19 | HHI.DS ---
Discharge Summary Admission Date Jun 26, 2017 at 15:52 Discharge Date: Jun 28, 2017 Admitting Diagnosis stroke alert/TPA (1) Bimalleolar fracture of left ankle ICD Codes: S82.842A - Bimalleolar fracture of left ankle Status: Acute (2) Chest wall contusion ICD Codes: S20.219A - Contusion of unspecified front wall of thorax, initial encounter Status: Acute (3) Stroke aborted by administration of thrombolytic agent ICD Codes: I63.9 - Cerebral infarction, unspecified Status: Acute (4) Paraplegia ICD Codes: G82.20 - Paraplegia, unspecified Status: Chronic (5) Spina bifida ICD Codes: Q05.9 - Spina bifida, unspecified Status: Chronic (6) HTN (hypertension) ICD Codes: I10 - Essential (primary) hypertension Status: Chronic CBC/BMP: 06/28/17 0406 06/28/17 0406 Significant Findings Laboratory Tests Test 06/26/17 14:48 06/27/17 00:57 06/27/17 04:29 06/28/17 04:06 White Blood Count 14.3 TH/MM3 (4.0-11.0) 11.2 TH/MM3 (4.0-11.0) Neutrophils (%) (Auto) 72.1 % (16.0-70.0) Neutrophils # (Auto) 10.3 TH/MM3 (1.8-7.7) Monocytes # (Auto) 1.0 TH/MM3 (0-0.9) Fibrinogen 424 mg/dL (227-377) Bedside Glucose 193 MG/DL (60-95) Hemoglobin A1c 7.4 % (4.3-6.0) Troponin I LESS THAN 0.02 NG/ML Triglycerides Level 215 MG/DL (42-150) Random Glucose 160 MG/DL (74-106) 127 MG/DL (74-106) Calcium Level 8.1 MG/DL (8.5-10.1) 8.3 MG/DL (8.5-10.1) Chloride Level 108 MEQ/L (98-107) 112 MEQ/L (98-107) Estimat Glomerular Filtration Rate 77 ML/MIN (>89) HDL Cholesterol 38.6 MG/DL (40.0-60.0) Imaging Last [address] 06/27/17 1600 Signed Impressions: Service Date/Time: Tuesday, June 27, 2017 16:22 - CONCLUSION: Hydrocephalus, ventricles are proportion to sulcal dilatation. MRI is pending. Iam Shields MD FACR Head Magnetic Resonance Angiography 06/27/17 0000 Signed Impressions: Service Date/Time: Tuesday, June 27, 2017 22:21 - CONCLUSION: No acute disease. Navneet Nava MD Carotid Artery Ultrasound 06/27/17 0000 Signed Impressions: Service Date/Time: Tuesday, June 27, 2017 22:52 - CONCLUSION: 1. Patent carotid arteries bilaterally. 2. Antegrade flow involving both vertebral arteries. Gerhard Long Jr., MD Brain MRI 06/27/17 0000 Signed Impressions: Service Date/Time: Tuesday, June 27, 2017 16:32 - CONCLUSION: Abnormal MRI dilatation the superolateral ventricles without other evidence for elevated pressures. CSF intensity is homogeneous. These findings would suggest central atrophy. Hydrocephalus cannot be excluded. Correlation with the old films would be most helpful Iam Shields MD FACR Head CT 06/26/17 0000 Signed Impressions: Service Date/Time: Monday, June 26, 2017 14:52 - CONCLUSION: 1. Chronic changes with a punctate old lacunar type infarct in the left centrum semiovale. 2. Ventricular prominence. Findings are nonspecific and can be seen in entity such as normal pressure hydrocephalus although a fourth ventricle obstruction cannot be excluded. Fourth ventricle appears to be normal in diameter. 3. Nothing acute. Braulio Bonilla MD PE at Discharge GENERAL: SKIN: Warm and dry. HEAD: Atraumatic. Normocephalic. EYES: Pupils equal and round. No scleral icterus. No injection or drainage. ENT: No nasal bleeding or discharge. Mucous membranes pink and moist. NECK: Trachea midline. No JVD. CARDIOVASCULAR: Regular rate and rhythm. RESPIRATORY: No accessory muscle use. Clear to auscultation. Breath sounds equal bilaterally. GASTROINTESTINAL: Abdomen soft, non-tender, nondistended. Hepatic and splenic margins not palpable. MUSCULOSKELETAL: Extremities without clubbing, cyanosis, or edema. No obvious deformities. NEUROLOGICAL: Awake and alert. No obvious cranial nerve deficits. Motor grossly within normal limits. 0 out of 5 muscle strength in the arms. Normal speech. PSYCHIATRIC: Appropriate mood and affect; insight and judgment normal. Hospital Course 67yF with Spina Bifida and new-onset right arm weakness with suspected new acute CVA. Her symptoms have resolved. if repeat head CT negative for acute bleed, can transfer to floor. will consult hospitalist services. New Right Arm Weakness CVA- + stroke tiny lacune image on dwi and flair s/p iv tpa mra brain/carotids nml echo nml ef recs- bp control, target 120/80 aspirin/statin p.t. d/w pt d/c home - 2d echo 06/27: normal biventricular size and function, EF 50-55%, trace aortic insufficiency - lipid panel 06/27: trig 140, LDL 77, HDL 38.6 - carotid dopplers - liberalize neuro checks - repeat interval head CT: no hemorrhage. - permissive hypertension, goal sbp < 180 - nursing bedside swallow evaluation: passed. - mivf. Hypertension - prn labetalol and hydralazine to keep sbp < 180 Diabetes - hold home meds - med scale ACHS SSI SCDs, SQH no evidence based indication for GI prophylaxis at this time. bronchitis. Discharge Disposition: Disch w/ Home Health Serv Discharge Instructions DIET: Follow Instructions for: As Tolerated, No Restrictions Activities you can perform: Regular-No Restrictions New Medications: Atorvastatin (Atorvastatin) 10 Mg Tab 10 MG PO HS for Cholesterol Management, #90 TAB 6 Refills Azithromycin (Azithromycin) 250 Mg Tab 250 MG PO DIRECTED for Infection, #6 TAB 0 Refills Take 2 tabs (500 mg) on day 1 then 1 tab daily x 4 days. Metoprolol Succinate ER 24 HR (Toprol XL) 25 Mg Tab 25 MG PO DAILY for HTN, #90 TAB [address] (Aspirin EC) 325 Mg Tabdr 325 MG PO DAILY for cva for 90 Days, #90 TAB 5 Refills Clonidine (Catapres) 0.1 Mg Tab 0.1 MG PO Q8HR PRN for SBP>190, DBP>100 for 90 Days, TAB 11 Refills Continued Medications: Alpha Lipoic Acid (Alpha Lipoic Acid) 100 Mg Cap 150 MG PO DIRECTED for Nutritional Supplement, CAP 0 Refills Cholecalciferol (Vitamin D3) 1,000 Unit Chew 1000 UNITS CHEW DAILY for Nutritional Supplement, #1 BOTTLE 0 Refills Linagliptin (Tradjenta) 5 Mg Tab 5 MG PO DAILY for Blood Sugar Management, #30 TAB 0 Refills Losartan (Losartan) 50 Mg Tab 50 MG PO DAILY for Blood Pressure Management, #30 TAB 0 Refills Magnesium Oxide (Magnesium Oxide) 250 Mg Tab 250 MG PO DAILY, TAB 0 Refills Metformin ER (Metformin ER) 500 Mg Eric 500 MG PO DAILY for Blood Sugar Management, TAB 0 Refills With evening meal Otoniel Patino MD Jun 28, 2017 13:19
--- NOTE | 2017-06-28 13:24 | HHI.DCPOC ---
Discharge Care Plan Diagnosis: (1) Stroke aborted by administration of thrombolytic agent (2) Paraplegia (3) Spina bifida (4) HTN (hypertension) (5) Chest wall contusion (6) Bimalleolar fracture of left ankle Goals to Promote Your Health * To prevent worsening of your condition and complications * To maintain your health at the optimal level Directions to Meet Your Goals Take your medications as prescribed Follow your dietary instruction Follow activity as directed Keep your appointments as scheduled Take your immunizations and boosters as scheduled If your symptoms worsen call your PCP, if no PCP go to Urgent Care Center or Emergency Room Smoking is Dangerous to Your Health. Avoid second hand smoke Call the 24-hour hour crisis hotline for domestic abuse at Otoniel Patino MD Jun 28, 2017 13:24
--- NOTE | 2017-06-28 13:25 | HHI.FF ---
Face to Face Verification Diagnosis: (1) Stroke aborted by administration of thrombolytic agent (2) Paraplegia (3) Spina bifida (4) HTN (hypertension) (5) Chest wall contusion (6) Bimalleolar fracture of left ankle Physical Therapy Order: Evaluate and Treat, Improve ambulation, Strength and gait training Occupational Therapy Order: Evaluate and Treat, Improve ADL, Gross motor coordination, Fine motor coordination Home Health Nursing Order: Medical education Signs/symptoms of disease process Medication education-adverse effect Wound care and dressing changes Nursing assessment with vital signs Telehealth Home Health Aide Order: To Assist In: Bathing and personal care, rehabilitation aide and meal prep 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 My clinical findings support the need for the requested home health care services because: Ltd mobility - disease progression Patient has SOB Deconditioned w/ increased weakness Med compliance is questionable Limited ability to care for self Need for psychosocial assistance Impaired cognition/judgement High risk of falls I certify that my clinical findings support that this patient is homebound because: Impaired cognitive ability/safety Unsteady gait/balance Unsafe to leave home unassisted Need for psychosocial assistance [id number] bed/chair Unable to use public transportation Otoniel Patino MD Jun 28, 2017 13:25
[2017-06-28] MEDS ORDERED: AZIT250T3 PO (13:26)
[2017-06-28] MEDS ORDERED: ATOR10TA15 PO (13:27)
[2017-06-28] MEDS ORDERED: CLOPIDOGREL 75 MG TAB PO ONE (18:30)
[2017-06-28] MEDS ORDERED: ASPIRIN EC 325 MG TABEC PO ONE (18:30)
--- NOTE | 2017-06-28 19:24 | RADRPT ---
EXAM DATE/TIME: 06/28/2017 18:54 [facility] COMPARISON: MRI BRAIN W/O CONTRAST, June 27, 2017, 16:32. INDICATIONS : Right sided weakness. CVA. MEDICAL HISTORY : Diabetes mellitus type 2. SURGICAL HISTORY : Appendectomy. Carpal tunnel syndrome. Spina Bifida surgery and bilateral ankle. ENCOUNTER: Subsequent ACUITY: 2 day PAIN SCORE: 0/10 LOCATION: Head. TECHNIQUE: Multiplanar, multisequence MRI of the brain was performed without contrast. FINDINGS: CEREBRUM: Ventricular dilatation again noted. No evidence of transependymal flow of CSF.. No evidence of midli ne shift, mass lesion, hemorrhage or acute infarction. No extraaxial fluid collections are seen. Th e pituitary gland and suprasellar cistern are normal in configuration. WHITE MATTER: No significant signal abnormalities are seen in the white matter. POSTERIOR FOSSA: The cerebellum and brainstem are intact. The 4th ventricle is midline. The cerebellopontine angle is unremarkable. The cerebellar tonsils are normal in position. DIFFUSION IMAGIN mm focus of restricted diffusion again seen in the left posterior frontal lobe periventricular whit e matter. This is unchanged. EXTRACRANIAL: Mild mucoperiosteal thickening of the visualized sinuses. CONCLUSION: 1. Subcentimeter subacute left periventricular white matter infarct unchanged. 2. No acute abnormality or interim change. 3. Ventriculomegaly again noted. 4. Sinus disease. Anuel Salgado MD on June 28, 2017 at 19:19 Board Certified Radiologist. This report was verified electronically.
[2017-06-28] MEDS ORDERED: ATORVASTATIN 10 MG TAB PO SCH (21:00)
[2017-06-28] MEDS ORDERED: IOHEXOL 350 MG/ML 10 ML VIAL (for RAD DIAG) IVCONTRAST ONE (21:12)
--- NOTE | 2017-06-28 21:23 | RADRPT ---
EXAM DATE/TIME: 06/28/2017 20:46 [facility] COMPARISON: CTA CAROTID ARTERIES W 3D RECON, June 28, 2017, 20:46. MRI BRAIN W/O CONTRAST, June 28 17, 18:54. US CAROTID ARTERIES, June 27, 2017, 22:52. MRA BRAIN W/O CONTRAST, June 27 17, 22:21. MRI BRAIN W/O CONTRAST, June 27, 2017, 16:32. INDICATIONS : Right sided weakness. IV CONTRAST: 75 cc Omnipaque 350 (iohexol) IV RADIATION DOSE: 14.87 CTDIvol (mGy) MEDICAL HISTORY : Hypertension. Diabetes mellitus type 2. SURGICAL HISTORY : Appendectomy. Umbilical hernia repair.spinal fusion ENCOUNTER: Subsequent ACUITY: 2 days PAIN SCALE: 0/10 LOCATION: cranial TECHNIQUE: Volumetric scanning was performed using a multi-row detector CT scanner. The data was post processed with a variety of visualization algorithms including full volume maximum intensity projection, multi -planar sliding thin slab reformation, curved planar reformation, and surface rendering techniques. Using automated exposure control and adjustment of the mA and/or kV according to patient size, radiat ion dose was kept as low as reasonably achievable to obtain optimal diagnostic quality images. DICO M format image data is available electronically for review and comparison. FINDINGS: There is excellent visualization of the major intracranial arteries out to the second-order branch ve ssels. There is no evidence for aneurysm, vessel truncation or stenosis, and no evidence for vascula r malformation. CONCLUSION: Intracranial arteries are within normal limits. Anuel Salgado MD on June 28, 2017 at 21:21 Board Certified Radiologist. This report was verified electronically.
--- NOTE | 2017-06-28 21:46 | RADRPT ---
EXAM DATE/TIME: 06/28/2017 20:46 [facility] COMPARISON: CTA BRAIN W 3D RECON, June 28, 2017, 20:46. MRI BRAIN W/O CONTRAST, June 28, 2017, 18:54. US CAROTID ARTERIES, June 27, 2017, 22:52. MRA BRAIN W/O CONTRAST, June 27, 2017, 22:21. MRI BRAIN W/O CONTRAST, June 27, 2017, 16:32. CT BRAIN W/O CONTRAST, June 27, 2017, 16:22 . INDICATIONS : Evaluate for occlusion, right sided weakness. IV CONTRAST: 75 cc Omnipaque 350 (iohexol) IV RADIATION DOSE: 14.87 CTDIvol (mGy) MEDICAL HISTORY : Hypertension. Diabetes mellitus type 2. SURGICAL HISTORY : Appendectomy. Umbilical hernia repair.spinal fusion ENCOUNTER: Subsequent ACUITY: 2 days PAIN SCALE: 0/10 LOCATION: neck Elevated flow velocities and ICA/CCA ratios have been found to correlate with increased degrees of vessel stenosis, calculated as percentage of diameter relative to a normal segment of distal ICA/CCA. TECHNIQUE: Volumetric scanning was performed using a multirow detector CT scanner. The data was post processed with a variety of visualization algorithms including full-volume maximum intensity projection, multip lanar sliding thin-slab reformation, curved-planar reformation, and surface-rendering techniques. Us ing automated exposure control and adjustment of the mA and/or kV according to patient size, radiatio n dose was kept as low as reasonably achievable to obtain optimal diagnostic quality images. DICOM f ormat image data is available electronically for review and comparison. FINDINGS: AORTIC ARCH: There is a three-vessel origin of the great vessels from the aorta. No evidence of ostial narrowing. RIGHT CAROTID: The common carotid artery is intact. The carotid bulb has a normal configuration without ulceration o r narrowing. The internal carotid artery lumen is smooth without stenosis. The external carotid daron ry is intact. Both the CCA and ICA are tortuous. LEFT CAROTID: The common carotid artery is intact. The carotid bulb has a normal configuration without ulceration or narrowing. The internal carotid artery lumen is smooth without stenosis. The external carotid ar preeti is intact. Both the CCA and ICA are tortuous. VERTEBRALS: The vertebral arteries have a symmetric diameter. No stenotic lesions are seen. CONCLUSION: Tortuous bilateral carotids. No stenosis or other acute abnormality. Anuel Salgado MD on June 28, 2017 at 21:44 Board Certified Radiologist. This report was verified electronically.
[2017-06-29 01:41] VITALS: BP 157/72; PULSE 78; RESP 18; TEMP 97.4; O2SAT 94
[2017-06-29] MEDS: INSULIN NovoLIN REGULAR SUPPLEMENTAL SCALE SQ SCH ×3 (03:28→11:54)
[2017-06-29] MEDS: CHLORHEXIDINE GLUCONATE 2 % 1 PACK (2 CLOTHS) TOP SCH (03:29)
[2017-06-29 04:19] LABS: HEMATOCRIT 36.8 % (35.0-46.0); MEAN CELL VOLUME 91.1 FL (80.0-100.0); MEAN CORPUSCULAR HEMOGLOBIN 30.6 PG (27.0-34.0); MEAN CORPUSCULAR HGB CONC 33.6 % (32.0-36.0); PLATELET COUNT 238 TH/MM3 (150-450); RED BLOOD COUNT 4.04 MIL/MM3 (4.00-5.30); REVIEW FLAG FINAL; WHITE BLOOD COUNT 10.9 TH/MM3 (4.0-11.0)
[2017-06-29 04:36] LABS: BICARBONATE 25.1 MEQ/L (21.0-32.0); POTASSIUM 3.4 MEQ/L (3.5-5.1)
[2017-06-29] MEDS: SODIUM CHLOR 0.9% 1000 ML INJ 1,000 ML IV SCH (05:18)
[2017-06-29] MEDS: HEPARIN SODIUM - SQ 10,000 UNITS/ML VIAL SQ SCH ×2 (05:18→12:18)
[2017-06-29 05:54] VITALS: BP 151/71; PULSE 81; RESP 16; TEMP 99; O2SAT 96
--- NOTE | 2017-06-29 07:52 | HHI.PR ---
Review/Management Diagnosis/Plan: (1) Stroke aborted by administration of thrombolytic agent ICD Codes: I63.9 - Cerebral infarction, unspecified Status: Acute Plan: + stroke tiny lacune image on dwi and flair s/p iv tpa mra brain/carotids nml echo nml ef repeat mri brain- stable size of stroke; cta's brain/carotid nml recs strength a little worse; would benefit from inpt rehab today permissive htn; tx if >200/100 for the next few days; in one week add bp meds aspirin/plavix p.t. d/w pt/rn (2) Spina bifida ICD Codes: Q05.9 - Spina bifida, unspecified Status: Chronic (3) Paraplegia ICD Codes: G82.20 - Paraplegia, unspecified Status: Chronic (4) HTN (hypertension) ICD Codes: I10 - Essential (primary) hypertension Status: Chronic Subjective Subjective Comments got worse yesterday; plavix added mri brain stable No headache No chest pain No dyspnea Active Medications Current Medications Medications (Trade) Dose Ordered Sig/Isaac Route Start Time Stop Time Status Last Admin (Trandate Inj) 20 mg Q15M PRN IV PUSH 06/26/17 16:15 (Apresoline Inj) 10 mg Q30M PRN IV PUSH 06/26/17 16:15 (Mag-Ox) 800 mg UNSCH PRN PO 06/26/17 16:15 Magnesium Sulfate 4 gm/Sodium Chloride 100 ml @ 50 mls/hr UNSCH PRN IV 06/26/17 16:15 Magnesium Sulfate 2 gm/Sodium Chloride 100 ml @ 50 mls/hr UNSCH PRN IV 06/26/17 16:15 Potassium Chloride 100 ml @ 50 mls/hr Q2H PRN IV 06/26/17 16:15 Potassium Chloride 100 ml @ 50 mls/hr Q2H PRN IV 06/26/17 16:15 Potassium Chloride 100 ml @ 50 mls/hr Q2H PRN IV 06/26/17 16:15 Potassium Chloride 100 ml @ 25 mls/hr UNSCH PRN IV 06/26/17 16:15 (K-Phos) 2,000 mg Q4H PRN PO 06/26/17 16:15 (K-Phos) 2,000 mg UNSCH PRN PO/TUBE 06/26/17 16:15 Potassium Phosphate 30 mmol/ Sodium Chloride 260 ml @ 42 mls/hr UNSCH PRN IV 06/26/17 16:15 Sodium Phosphate 30 mmol/Sodium Chloride 250 ml @ 42 mls/hr UNSCH PRN IV 06/26/17 16:15 (D50w (Vial) Inj) 25 ml UNSCH PRN IV PUSH 06/26/17 16:15 (NovoLIN R SUPPLEMENTAL SCALE) 1 ACHS AND 3AM SQ 06/26/17 17:00 Sodium Chloride 1,000 ml @ 84 mls/hr [id number] IV 06/26/17 18:00 06/29/17 05:18 (Tylenol) 650 mg Q6H PRN PO 06/26/17 16:15 06/28/17 22:10 (Zofran Inj) 4 mg Q6H PRN IV PUSH 06/26/17 16:15 (Duoneb Neb) 1 ampule Q2HR NEB PRN INH 06/26/17 16:15 06/27/17 08:28 Miscellaneous Information 1 Q361D XX 06/26/17 16:15 06/26/17 16:15 (Chlorhexidine 2% Cloth) 3 pack Taper DAILY@04 TOP 06/27/17 04:00 06/23/18 03:59 (Chlorhexidine 2% Cloth) 3 pack UNSCH PRN TOP 06/26/17 16:15 (Dot-Colace) 1 tab BID PO 06/26/17 21:00 06/26/17 20:56 (Heparin Inj) 5,000 units Q8HR SQ 06/27/17 22:00 06/29/17 05:18 (Ecotrin Ec) 325 mg DAILY PO 06/28/17 09:00 06/28/17 08:37 (Lipitor) 10 mg HS PO 06/28/17 21:00 06/28/17 22:10 Allergies Allergies Coded Allergies ciprofloxacin (Unverified Allergy, Severe, Diarrhea, 06/26/17) latex (Unverified Allergy, Severe, Rash, 06/26/17) tetanus immune globulin (Unverified Allergy, Severe, 06/26/17) cephalexin (Unverified Adverse Reaction, Intermediate, DIARRHEA, 06/26/17) Review of Systems All other ROS: ROS reviewed as documented in chart Exam I&O / VS Vital Signs Date Time Temp Pulse Resp B/P (MAP) Pulse Ox O2 Delivery O2 Flow Rate FiO2 06/29/17 05:54 99.0 81 16 151/71 (97) 96 06/29/17 01:41 97.4 78 18 157/72 (100) 94 06/28/17 21:14 98.0 81 16 191/81 (117) 95 06/28/17 15:00 98.0 91 16 142/72 (95) 95 06/28/17 11:00 97.7 77 18 151/67 (95) 95 06/28/17 08:49 97.6 74 17 186/82 (116) 97 General: Alert and Oriented, No acute distress Eye: EOMI Respiratory: Non-labored respirations Neurologic: Alert Psychiatric: Cooperative Exam Comments alert, ox 3, speech dysarthric, eomi, vff, mild reduced rt nlf, face sym, mild drift rt ue with mild dystaxia paraplegia, Objective Micro and Labs Laboratory Tests Test 06/29/17 04:04 White Blood Count 10.9 Red Blood Count 4.04 Hemoglobin 12.4 Hematocrit 36.8 Mean Corpuscular Volume 91.1 Mean Corpuscular Hemoglobin 30.6 Mean Corpuscular Hemoglobin Concent 33.6 Red Cell Distribution Width 13.0 Platelet Count 238 Mean Platelet Volume 7.2 Blood Urea Nitrogen 11 Creatinine 0.51 Random Glucose 121 Calcium Level 8.1 Sodium Level 145 Potassium Level 3.4 Chloride Level 113 Carbon Dioxide Level 25.1 Anion Gap 7 Estimat Glomerular Filtration Rate 121 Sal Conn MD Jun 29, 2017 07:52
[2017-06-29 08:07] VITALS: BP 164/86; PULSE 78; RESP 18; TEMP 98; O2SAT 95
[2017-06-29] MEDS: DOCUSATE SODIUM 50 MG/SENNA 8.6 MG TAB PO SCH (08:35)
[2017-06-29] MEDS: ASPIRIN EC 325 MG TABEC PO SCH (08:35)
[2017-06-29] MEDS ORDERED: CLOPIDOGREL 75 MG TAB PO SCH (09:00)
[2017-06-29 12:00] VITALS: BP 178/81; PULSE 89; RESP 18; TEMP 97.6; O2SAT 95
--- NOTE | 2017-06-29 15:33 | PD.CONS ---
[facility] Service Rehabilitation Medicine Consult Requested By Sal Conn MD Reason for Consult Comprehensive rehabilitation evaluation. Primary Care Physician Otoniel Patino MD History of Present Illness Racheal Gee is a 67-year-old [id number]-[id number]-klugoltt female admitted to [facility] 06/26/17 with right upper extremity weakness and difficulty speaking. CT showed chronic changes of the left centrum semiovale and prominence of the ventricular system but no acute change. She received tPA. Follow-up MRI 06/28/17 showed subcentimeter subacute left periventricular white matter infarct and ventriculomegaly. Patient continues to report right upper extremity weakness which is limiting her functional abilities. Review of Systems Constitutional: COMPLAINS OF: Fatigue Eyes: DENIES: Diplopia Ears, nose, mouth, throat: DENIES: Throat pain Respiratory: DENIES: Shortness of breath Cardiovascular: DENIES: Chest pain Gastrointestinal: DENIES: Abdominal pain Genitourinary: COMPLAINS OF: Urinary frequency, Urinary incontinence Integumentary: DENIES: Pruritus Hematologic/lymphatic: DENIES: Bruising Immunologic/allergic: DENIES: Urticaria Neurologic: COMPLAINS OF: Localized weakness, Poor Balance, DENIES: Headache, Speech Problems Psychiatric: DENIES: Confusion Past Family Social History Allergies: Coded Allergies: ciprofloxacin (Unverified Allergy, Severe, Diarrhea, 06/26/17) latex (Unverified Allergy, Severe, Rash, 06/26/17) tetanus immune globulin (Unverified Allergy, Severe, 06/26/17) ARM "BLEW UP", PAIN IN ARM cephalexin (Unverified Adverse Reaction, Intermediate, DIARRHEA, 06/26/17) Past Medical History Spina bifida with paraparesis Diabetes mellitus Hypertension Scoliosis Left hip dislocation Past Surgical History Appendectomy Bilateral ankle ORIF Bilateral carpal tunnel release Current Medications Current Medications Medications (Trade) Dose Ordered Sig/Isaac Route Start Time Stop Time Status Last Admin (Trandate Inj) 20 mg Q15M PRN IV PUSH 06/26/17 16:15 (Apresoline Inj) 10 mg Q30M PRN IV PUSH 06/26/17 16:15 (D50w (Vial) Inj) 25 ml UNSCH PRN IV PUSH 06/26/17 16:15 (NovoLIN R SUPPLEMENTAL SCALE) 1 ACHS AND 3AM SQ 06/26/17 17:00 Sodium Chloride 1,000 ml @ 84 mls/hr [id number] IV 06/26/17 18:00 06/29/17 05:18 (Tylenol) 650 mg Q6H PRN PO 06/26/17 16:15 06/28/17 22:10 (Zofran Inj) 4 mg Q6H PRN IV PUSH 06/26/17 16:15 (Duoneb Neb) 1 ampule Q2HR NEB PRN INH 06/26/17 16:15 06/27/17 08:28 Miscellaneous Information 1 Q361D XX 06/26/17 16:15 06/26/17 16:15 (Chlorhexidine 2% Cloth) 3 pack Taper DAILY@04 TOP 06/27/17 04:00 06/23/18 03:59 (Chlorhexidine 2% Cloth) 3 pack UNSCH PRN TOP 06/26/17 16:15 (Dot-Colace) 1 tab BID PO 06/26/17 21:00 06/26/17 20:56 (Heparin Inj) 5,000 units Q8HR SQ 06/27/17 22:00 06/29/17 12:18 (Ecotrin Ec) 325 mg DAILY PO 06/28/17 09:00 06/29/17 08:35 (Lipitor) 10 mg HS PO 06/28/17 21:00 06/28/17 22:10 (Plavix) 75 mg DAILY PO 06/29/17 09:00 06/29/17 08:35 Family History Noncontributory to the history of present illness Social History Prior to admission patient lived alone. She was able to transfer bed to wheelchair and has a power wheelchair which she uses for all mobility. She was independent with self-care ADLs. She had assistance of a molecular pathologist once a week. She has a service dog who is able to assist her as well. She reports that she was driving. Exam I&O / VS Vital Signs Date Time Temp Pulse Resp B/P (MAP) Pulse Ox O2 Delivery O2 Flow Rate FiO2 06/29/17 12:00 97.6 89 18 178/81 (113) 95 06/29/17 08:07 98.0 78 18 164/86 (112) 95 06/29/17 05:54 99.0 81 16 151/71 (97) 96 06/29/17 01:41 97.4 78 18 157/72 (100) 94 06/28/17 21:14 98.0 81 16 191/81 (117) 95 General: No acute distress Respiratory: Lungs CTA, Non-labored respirations, BS equal Gastrointestinal: Positive Bowel Sounds, Non-Distended, Non-Tender Cardiovascular: Normal rate, Regular Rhythm Skin: Other (no rash noted) Musculoskeletal: Swelling (12 lower extremities) Psychiatric: Cooperative, Appropriate mood & affect Orientation: oriented to Self, oriented to Place, oriented to Time, oriented to Situation Neurologic: Pupils (PERRLA), EOM, Facial Symmetry (symmetric), Speech Motor: Right Upper Extremity (3/5), Left Upper Extremity (5/5), Right Lower Extremity (hip extension 2/5, knee extension 1/5; remainder 0), Left Lower Extremity (hip extension 2/5, knee extension 1/5; remainder 0) Sensory Decreased/impaired distal to L1 bilaterally Clonus: Negative Assessment and Plan Diagnosis: (1) Stroke ICD Codes: I63.9 - Cerebral infarction, unspecified (2) Spina bifida ICD Codes: Q05.9 - Spina bifida, unspecified Status: Chronic (3) Paraplegia ICD Codes: G82.20 - Paraplegia, unspecified Status: Chronic Assessment 1. Stroke status post TPA with right upper extremity weakness which is limiting patient's ability to perform ADLs and to transfer to power wheelchair which she uses for all mobility 2. Spina bifida with paraparesis 3. Diabetes mellitus 4. Hypertension 5. Patient scoliosis 6. History of left hip dislocation Plan 1. Patient is now maximal assistance for transfers supine to sit with physical therapy. Would mobilize out of bed as tolerated 2. Occupational therapy consulted for ADLs. Patient is able to use the right hand as a gross grasp but previously was independent with all self-care ADL 3. Speech therapy to reevaluate swallow. Patient reports sensation of food sticking when swallowing 4. Turning reposition every 2 hours to protect skin. Monitor carefully as patient is at high risk for breakdown 5. Patient will benefit from ongoing rehabilitation at discharge and case management is referring for ongoing care 6. Will follow while hospitalized and at discharge is appropriate Thank you for this consult Angely Parish MD Jun 29, 2017 15:33
[2017-07-19] MEDS ORDERED: PLAV75TA29 PO (10:16)
[2017-07-19] MEDS ORDERED: ATOR10TA15 PO (10:16)
[2017-07-19] MEDS ORDERED: CHOL100025 CHEW (10:16)
[2017-07-19] MEDS ORDERED: LACT12LO4 TOPICAL (10:16)
[2017-07-19] MEDS ORDERED: MAGN250T11 PO (10:16)
[2017-07-19] MEDS ORDERED: TAMS5CAP PO (10:16)
[2017-07-19] MEDS ORDERED: SENS113T TOPICAL (10:16)
[2017-07-19] MEDS ORDERED: ASPI325T33 PO (10:16)
[2017-07-19] MEDS ORDERED: FAMO20TA2 PO (10:16)
[2017-07-19] MEDS ORDERED: METF500 PO (10:16)
[2017-07-19] MEDS ORDERED: BETH10 PO (10:16)
== END 2017-06-29 16:22 | DRG 62 ==
LOC: NEPC 14:49 → NEDA 15:52 → N03B 17:01 → N05A 06-28 05:31
PROVIDERS: ADMIT Internal Medicine Critical Care Medicine; ATTEND Internal Medicine Critical Care Medicine
DX: I63.9 Cerebral infarction, unspecified (principal); G82.20 Paraplegia, unspecified; Q05.4 Unspecified spina bifida with hydrocephalus; R29.704 NIHSS score 4; M41.9 Scoliosis, unspecified; G83.21 Monoplegia of upper limb affecting right dominant side; R47.1 Dysarthria and anarthria; I10 Essential (primary) hypertension; E11.9 Type 2 diabetes mellitus without complications; S82.842D Displaced bimalleolar fracture of left lower leg, subsequent encounter for closed fracture with routine healing; K21.9 Gastro-esophageal reflux disease without esophagitis; Z99.3 Dependence on wheelchair; Z98.1 Arthrodesis status; Z79.84 Long term (current) use of oral hypoglycemic drugs
CPT/HCPCS: 70450; 70496; 70498; 70544; 70551; 80048; 80061; 82435; 82550; 82565; 82607; 82947; 82948; 83036; 84132; 84295; 84443; 84484; 84520; 85025; 85027; 85384; 85610; 85652; 85730; 86850; 86900; 86901; 93005; 93306; 93880; 94150; 94640; 94664; 94667; 94668; 96365; 96375; J1644; J2997; J7030; Q9967

== ENCOUNTER 2017-09-28 12:39 | Emergency (ER) | payer MEDICARE, OTHER ==
[~2017-09-28 12:39] MED LIST changes: +ALPH1CAP2 PO; +ASPI325T33 PO; +ATOR10TA15 PO; -B-COCAP9 PO; +BETH10 PO; +CLON.1 PO; +FAMO20TA2 PO; +LACT12LO4 TOPICAL; +MAGN250T11 PO; -MAGN250T2 PO; +METF500 PO; -METF500T4 PO; +PLAV75TA29 PO; +SENS113T TOPICAL; +TAMS5CAP PO; +TOPR25TA PO; -[UNRECOGNIZED DRUG - CODE] PO
[2017-09-28 12:46] VITALS: BP 135/65; PULSE 106; RESP 20; TEMP 98.2; O2SAT 98
--- NOTE | 2017-09-28 13:32 | PD ---
HPI Chief Complaint: Complaint Time Seen by Provider: 13:13 Travel History International Travel<30 days: No Contact w/Intl Traveler<30days: No Traveled to known affect area: No History of Present Illness HPI The patient was seen and examined in the presence of the nurse. This patient is a chronic indwelling full catheter. She woke up this morning the catheter was out lying on the bed. She is not having any urethral area pain. She came to get it replaced PFSH Past Medical History Hx Anticoagulant Therapy: No Arthritis: Yes Asthma: No Autoimmune Disease: No Blood Disorders: No Anxiety: No Depression: No Heart Rhythm Problems: No Cancer: No Cardiovascular Problems: Yes (htn on meds) High Cholesterol: No Chemotherapy: No Chest Pain: No Congestive Heart Failure: No COPD: No Cerebrovascular Accident: Yes Diabetes: Yes (type 2) Patient Takes Glucophage: Yes Endocrine: Yes Gastrointestinal Disorders: Yes (UMBILICAL HERNIA) GERD: Yes Genitourinary: Yes Hepatitis: No Hiatal Hernia: No Hypertension: Yes Immune Disorder: No Implanted Vascular Access Dvce: Yes Kidney Stones: Yes Medical other: Yes (UMBILICAL HERNIA, TORN RIGHT ROTATOR CUFF) Musculoskeletal: Yes (SCOLIOSIS, 10 VERTEBRAL FUSION, LEFT HIP DISLOCATION) Neurologic: Yes (SPINA BIFIDA) Psychiatric: No Reproductive: No Respiratory: No Migraines: No Radiation Therapy: No Renal Failure: No Seizures: No Sickle Cell Disease: No Sleep Apnea: No Thyroid Disease: No Ulcer: No Menopausal: Yes Past Surgical History Abdominal Surgery: Yes (APPENDECTOMY) AICD: No Appendectomy: Yes Arteriovenous Shunt: No Body Medical Devices: BILATERAL ANKLE ORIF Cardiac Surgery: No Ear Surgery: No Endocrine Surgery: No Eye Surgery: No Genitourinary Surgery: No Gynecologic Surgery: No Insulin Pump: No Joint Replacement: No Neurologic Surgery: Yes (BILATERAL CARPAL TUNNEL SURGERY, spina bifida SX as ) Oral Surgery: No Pacemaker: No Thoracic Surgery: No Other Surgery: Yes (LT WRIST CARPAL TUNNEL, left ankle fx with mary jane placement) Social History Alcohol Use: Yes (Social) Tobacco Use: No Substance Use: No Allergies-Medications (Allergen,Severity, Reaction): Coded Allergies: ciprofloxacin (Unverified Allergy, Severe, Diarrhea, 09/28/17) latex (Unverified Allergy, Severe, Rash, 09/28/17) tetanus immune globulin (Unverified Allergy, Severe, 09/28/17) ARM "BLEW UP", PAIN IN ARM cephalexin (Unverified Adverse Reaction, Intermediate, DIARRHEA, 09/28/17) Reported Meds & Prescriptions Reported Meds & Active Scripts Active Glucophage (Metformin HCl) 500 Mg Tab 500 Mg PO BID 30 Days Flomax (Tamsulosin HCl) 0.4 Mg Cap 0.4 Mg PO HS 30 Days Atorvastatin (Atorvastatin Calcium) 10 Mg Tab 10 Mg PO HS Vitamin D3 (Cholecalciferol) 1,000 Unit Chew 1,000 Units CHEW DAILY Reported Tradjenta (Linagliptin) 5 Mg Tab 5 Mg PO DAILY Losartan (Losartan Potassium) 50 Mg Tab 50 Mg PO DAILY Review of Systems General / Constitutional: No: Fever HENT: No: Headaches Cardiovascular: No: Chest Pain or Discomfort Physical Exam Narrative GASTROINTESTINAL: Abdomen soft, non-tender, nondistended. Positive bowel sounds. No hepato-splenomegaly, or palpable masses. No guarding. SKIN: Focused skin assessment reveals no rash or ulcers. Skin is warm and dry. Palpation shows no induration or nodules. : Urethral area shows no evidence of bleeding or tearing Data Data Last Documented VS Vital Signs Date Time Temp Pulse Resp B/P (MAP) Pulse Ox O2 Delivery O2 Flow Rate FiO2 09/28/17 12:46 98.2 106 20 135/65 (88) 98 Orders Orders Urinary Catheter Insert/Apply (09/28/17 13:19) MDM Medical Decision Making Medical Screen Exam Complete: Yes Emergency Medical Condition: Yes Medical Record Reviewed: Yes Differential Diagnosis Catheter malfunction, urethral injury, neurogenic bladder Narrative Course I have reviewed the patient's electronic medical record. Visual inspection shows no evidence of damage She has no complaint Flores catheter inserted Diagnosis Primary Impression: Displacement of Flores catheter Qualified Codes: T83.021A - Displacement of indwelling urethral catheter, initial encounter Additional Instructions: The patient was advised to follow up with their physician and return if they worsen. Med/Other Pt SpecificInfo: Other Disposition: 01 DISCHARGE HOME Condition: Stable Donavan Qureshi MD Sep 28, 2017 13:32
== END 2017-09-28 14:21 | disposition home or self-care (01) ==
LOC: PHED 12:39
DX: T83.021A Displacement of indwelling urethral catheter, initial encounter (principal); M19.90 Unspecified osteoarthritis, unspecified site; I10 Essential (primary) hypertension; E11.9 Type 2 diabetes mellitus without complications; K21.9 Gastro-esophageal reflux disease without esophagitis; M41.9 Scoliosis, unspecified; Q05.9 Spina bifida, unspecified; Z86.73 Personal history of transient ischemic attack (TIA), and cerebral infarction without residual deficits; Z87.442 Personal history of urinary calculi
CPT/HCPCS: 51702

== ENCOUNTER 2018-02-10 19:02 | Inpatient (IN) | payer MEDICARE, OTHER ==
[~2018-02-10] VITALS: Ht 147.3 cm; Wt 73.6 kg
[~2018-02-10 19:02] MED LIST changes: -ALPH1CAP2 PO; -ASPI325T33 PO; -BETH10 PO; -CLON.1 PO; -FAMO20TA2 PO; -LACT12LO4 TOPICAL; -MAGN250T11 PO; -PLAV75TA29 PO; -SENS113T TOPICAL; -TOPR25TA PO
[2018-02-10 19:09] VITALS: BP 138/80; PULSE 120; RESP 20; TEMP 98; O2SAT 97
[2018-02-10] MEDS ORDERED: METF500 PO (19:25)
[2018-02-10] MEDS ORDERED: MAGN500T2 PO (19:25)
[2018-02-10] MEDS ORDERED: CALC250T PO (19:25)
[2018-02-10] MEDS ORDERED: ALPH200C4 PO (19:25)
[2018-02-10] MEDS ORDERED: B-COTAB30 PO (19:25)
[2018-02-10] MEDS ORDERED: PLAV75TA29 PO (19:26)
--- NOTE | 2018-02-10 20:45 | PD ---
HPI Chief Complaint: Fall Time Seen by Provider: 20:34 Travel History International Travel<30 days: No Contact w/Intl Traveler<30days: No Traveled to known affect area: No History of Present Illness HPI This patient complains of left knee pain. 2 hours ago she fell out of her motorized wheelchair when she had a curb. She landed on her left knee. She has knee pain when she extends her knee. Symptom severity is mild. PFSH Past Medical History Hx Anticoagulant Therapy: Yes (PLAVIX) Arthritis: Yes Asthma: No Autoimmune Disease: No Blood Disorders: No Anxiety: No Depression: No Heart Rhythm Problems: No Cancer: No Cardiovascular Problems: Yes (htn on meds) High Cholesterol: No Chemotherapy: No Chest Pain: No Congestive Heart Failure: No COPD: No Cerebrovascular Accident: Yes (CVA: JUN 26, 2017) Diabetes: Yes (type 2) Patient Takes Glucophage: Yes Endocrine: Yes Gastrointestinal Disorders: Yes (UMBILICAL HERNIA) GERD: Yes Genitourinary: Yes Hepatitis: No Hiatal Hernia: No Hypertension: Yes Immune Disorder: No Implanted Vascular Access Dvce: Yes Kidney Stones: Yes ("BLADDER STONE") Medical other: Yes (UMBILICAL HERNIA, TORN RIGHT ROTATOR CUFF) Musculoskeletal: Yes (SCOLIOSIS, 10 VERTEBRAL FUSION, LEFT HIP DISLOCATION) Neurologic: Yes (SPINA BIFIDA) Psychiatric: No Reproductive: No Respiratory: No Migraines: No Radiation Therapy: No Renal Failure: No Seizures: No Shingles: Yes Sickle Cell Disease: No Sleep Apnea: No Thyroid Disease: No Ulcer: No Tetanus Vaccination: > 5 Years Influenza Vaccination: No ?: Not Menopausal: Yes : 0 Past Surgical History Abdominal Surgery: Yes (APPENDECTOMY) AICD: No Appendectomy: Yes Arteriovenous Shunt: No Body Medical Devices: BILATERAL ANKLE ORIF Cardiac Surgery: No Ear Surgery: No Endocrine Surgery: No Eye Surgery: No Genitourinary Surgery: No Gynecologic Surgery: No Insulin Pump: No Joint Replacement: No Neurologic Surgery: Yes (BILATERAL CARPAL TUNNEL SURGERY, spina bifida SX as infant ) Oral Surgery: No Pacemaker: No Thoracic Surgery: No Other Surgery: Yes (LT WRIST CARPAL TUNNEL, left ankle fx with mary jane placement) Social History Alcohol Use: Yes (Social) Tobacco Use: No Substance Use: No Allergies-Medications (Allergen,Severity, Reaction): Coded Allergies: ciprofloxacin (Unverified Allergy, Severe, Diarrhea, 5/6/18) latex (Unverified Allergy, Severe, Rash, 02/10/18) tetanus immune globulin (Unverified Allergy, Severe, 02/10/18) ARM "BLEW UP", PAIN IN ARM cephalexin (Unverified Adverse Reaction, Intermediate, DIARRHEA, 02/10/18) Reported Meds & Prescriptions Reported Meds & Active Scripts Active Atorvastatin (Atorvastatin Calcium) 10 Mg Tab 10 Mg PO HS Vitamin D3 (Cholecalciferol) 1,000 Unit Chew 1,000 Units CHEW DAILY Reported Plavix (Clopidogrel Bisulfate) 75 Mg Tab 75 Mg PO DAILY Alpha Lipoic Acid 200 Mg Cap 200 Mg PO DIRECTED Magnesium Oxide 500 Mg Tab 500 Mg PO DAILY Calcium Citrate 250 Mg Calcium Tab 250 Mg PO DAILY Super B Complex Tablet (Folic Acid/Vit B Complex and C) 400 Mcg Tablet 1 Tab PO DAILY Glucophage (Metformin HCl) 500 Mg Tab 500 Mg PO DAILY With a meal Tradjenta (Linagliptin) 5 Mg Tab 5 Mg PO DAILY Losartan (Losartan Potassium) 50 Mg Tab 50 Mg PO DAILY Review of Systems General / Constitutional: No: Fever HENT: No: Headaches Cardiovascular: No: Chest Pain or Discomfort Physical Exam Narrative Psych: Normal mood and affect. Normal insight and judgment. SKIN: Focused skin assessment reveals no rash or ulcers. Skin is warm and dry. Palpation shows no induration or nodules. Left knee: There is no redness or bruising or tenderness. Upon extension she does have some discomfort in the lateral area. Data Data Last Documented VS Vital Signs Date Time Temp Pulse Resp B/P (MAP) Pulse Ox O2 Delivery O2 Flow Rate FiO2 02/10/18 19:09 98.0 120 20 138/80 (99) 97 Orders Orders Knee, Complete (4vws) (02/10/18 ) Femur (Ap & Lat/2vws) (02/10/18 ) Iv Access Insert/Monitor (02/10/18 22:44) Complete Blood Count With Diff (02/10/18 22:44) Basic Metabolic Panel (Bmp) (02/10/18 22:44) Admit Order (Ed Use Only) (02/10/18 22:44) Admit Order (Ed Use Only) (02/10/18 22:45) Admit To Inpatient (02/10/18 ) Vital Signs (Adult) Q4H (02/10/18 22:46) Activity Oob With Assistance (02/10/18 22:46) Intake + Output SAHIL.QSHIFT (02/10/18 22:46) Diet Regular Basic (02/11/18 Breakfast) Sodium Chloride 0.9% Flush (Ns Flush) (02/10/18 23:00) Sodium Chloride 0.9% Flush (Ns Flush) (02/11/18 09:00) Ondansetron Inj (Zofran Inj) (02/10/18 23:00) Comprehensive Metabolic Panel (02/11/18 06:00) Complete Blood Count With Diff (02/11/18 06:00) Pt Request For Service (02/10/18 22:46) Case Management Consult (02/10/18 22:46) Heparin Inj (Heparin Inj) (02/11/18 09:00) Acetaminophen (Tylenol) (02/10/18 23:00) Acetamin-Hydrocod 325-5 Mg (Carman 5-325 (02/10/18 23:00) Docusate Sodium-Senna (Dot-Colace) (02/11/18 09:00) Magnesium Hydroxide Liq (Milk Of Magnesi (02/10/18 23:00) Sennosides (Senokot) (02/10/18 23:00) Bisacodyl Supp (Dulcolax Supp) (02/10/18 23:00) Lactulose Liq (Lactulose Liq) (02/10/18 23:00) Inpatient Certification (02/10/18 ) Cyclobenzaprine (Flexeril) (02/10/18 23:00) Morphine Inj (Morphine Inj) (02/10/18 23:00) MDM Medical Decision Making Medical Screen Exam Complete: Yes Emergency Medical Condition: Yes Medical Record Reviewed: Yes Differential Diagnosis Contusion, fracture, dislocation Narrative Course I have reviewed the patient's electronic medical record. I reviewed her left knee x-rays Of note her initial heart rate in triage was 120 I checked it personally and is 105 She has no symptoms beyond knee pain from a fall and I do not think requires extensive workup at this point otherwise X-rays show left distal femur fracture, basically no displacement. Dedicated femur films have been ordered x-rays are reviewed by Dr. Jones's PA. He recommends nonoperative management Discussed at length with the patient. She is not able to transfer because she needs to bear weight. She lives alone and is not going to work. She wants to go to rehab. I have discussed with hospitalist will admit her with the goal of rehab placement. I have added IV and lab studies Diagnosis Primary Impression: Femur fracture, left Qualified Codes: S72.492A - Other fracture of lower end of left femur, initial encounter for closed fracture Admitting Information Admitting Physician Requests: Donavan Jang MD February 10, 2018 20:45
--- NOTE | 2018-02-10 21:12 | RADRPT ---
EXAM DATE/TIME: 02/10/2018 20:51 [facility] COMPARISON: No previous studies available for comparison. INDICATIONS : Left knee pain and swelling. MEDICAL HISTORY : None. SURGICAL HISTORY : None. ENCOUNTER: Initial ACUITY: 3 days PAIN SCORE: 7/10 LOCATION: Left lateral FINDINGS: There is evidence of an acute fracture involving the left distal femoral metaphysis. Diffuse osteopor osis is noted. No knee joint effusion is noted. The proximal tibia and fibula are intact. CONCLUSION: 1. Acute fracture involving the left distal femoral metaphysis. 2. Diffuse osteoporosis. Navneet Nava MD on February 10, 2018 at 21:09 Board Certified Radiologist. This report was verified electronically.
[2018-02-10] MEDS ORDERED: SENNOSIDES 8.6 MG TAB PO PRN (23:00)
[2018-02-10] MEDS ORDERED: MAGNESIUM HYDROXIDE SUSP 30 ML CUP PO PRN (23:00)
[2018-02-10] MEDS ORDERED: ACETAMINOPHEN 325 MG TAB PO PRN (23:00)
[2018-02-10] MEDS ORDERED: CYCLOBENZAPRINE HCL 10 MG TAB PO PRN (23:00)
[2018-02-10] MEDS ORDERED: ONDANSETRON HCL 4 MG/2 ML VIAL IVP PRN (23:00)
[2018-02-10] MEDS ORDERED: ACETAMINOPHEN/HYDROcodone 325 MG/5 MG TAB PO PRN (23:00)
[2018-02-10] MEDS ORDERED: BISACODYL 10 MG SUPP RECTAL PRN (23:00)
[2018-02-10] MEDS ORDERED: LACTULOSE SYRUP 20 GM/30 ML CUP PO PRN (23:00)
[2018-02-10 23:32] LABS: AUTOMATED NEUTROPHIL # 15.7 TH/MM3 (1.8-7.7); BASOPHIL # 0.4 TH/MM3 (0-0.2); EOSINOPHIL # 0.3 TH/MM3 (0-0.4); EOSINOPHIL % 1.6 % (0.0-4.0); HEMOGLOBIN 14.8 GM/DL (11.6-15.3); LYMPH % 16.1 % (9.0-44.0); LYMPHOCYTE # 3.3 TH/MM3 (1.0-4.8); MEAN CELL VOLUME 87.7 FL (80.0-100.0); MEAN CORPUSCULAR HEMOGLOBIN 29.6 PG (27.0-34.0); MEAN CORPUSCULAR HGB CONC 33.7 % (32.0-36.0); MEAN PLATELET VOLUME 8.1 FL (7.0-11.0); NEUT % 75.3 % (16.0-70.0); PLATELET COUNT 440 TH/MM3 (150-450); RED BLOOD COUNT 5.01 MIL/MM3 (4.00-5.30); RED CELL DISTRIBUTION WIDTH 13.1 % (11.6-17.2); WHITE BLOOD COUNT 20.7 TH/MM3 (4.0-11.0)
[2018-02-10 23:37] LABS: BICARBONATE 28.2 MEQ/L (21.0-32.0)
[2018-02-10 23:40] LABS: CREATININE 0.65 MG/DL (0.50-1.00)
[2018-02-11] MEDS: SODIUM CHLORIDE 0.9% FLUSH 10 ML FLUSH IV FLUSH PRN ×3 (01:10→22:04)
[2018-02-11] MEDS: MORPHINE SULFATE 4 MG/ML INJ IV PRN ×5 (01:10→22:04)
[2018-02-11 01:37] VITALS: BP 143/77; PULSE 122; RESP 20; TEMP 96.3; O2SAT 96
--- NOTE | 2018-02-11 06:46 | RADRPT ---
EXAM DATE/TIME: 02/10/2018 00:00 [facility] COMPARISON: No previous studies available for comparison. INDICATIONS : Left distal femur pain and swelling. MEDICAL HISTORY : None. SURGICAL HISTORY : None. ENCOUNTER: Initial ACUITY: 1 day PAIN SCORE: 10/10 LOCATION: Left distal Femur FINDINGS: Two view examination of the left femur demonstrates a slightly impacted fracture of the distal left f emoral metaphysis. 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 B matthew mineralization is normal. The soft tissue structures are intact. CONCLUSION: Distal femoral metaphyseal fracture with slight impaction. Yanick Raymond MD on February 11, 2018 at 6:44 Board Certified Radiologist. This report was verified electronically.
[2018-02-11 06:50] LABS: AUTOMATED NEUTROPHIL # 13.2 TH/MM3 (1.8-7.7); BASOPHIL # 0.8 TH/MM3 (0-0.2); BASOPHIL % 4.7 % (0.0-2.0); EOSINOPHIL # 0.3 TH/MM3 (0-0.4); EOSINOPHIL % 1.9 % (0.0-4.0); HEMATOCRIT 39.3 % (35.0-46.0); HEMOGLOBIN 13.5 GM/DL (11.6-15.3); LYMPH % 12.8 % (9.0-44.0); LYMPHOCYTE # 2.3 TH/MM3 (1.0-4.8); MEAN CELL VOLUME 87.9 FL (80.0-100.0); MEAN CORPUSCULAR HEMOGLOBIN 30.2 PG (27.0-34.0); MEAN CORPUSCULAR HGB CONC 34.3 % (32.0-36.0); MEAN PLATELET VOLUME 8.1 FL (7.0-11.0); MONO % 6.7 % (0.0-8.0); MONOCYTE # 1.2 TH/MM3 (0-0.9); NEUT % 73.9 % (16.0-70.0); PLATELET COUNT 377 TH/MM3 (150-450); RED BLOOD COUNT 4.47 MIL/MM3 (4.00-5.30); RED CELL DISTRIBUTION WIDTH 13.6 % (11.6-17.2); WHITE BLOOD COUNT 17.9 TH/MM3 (4.0-11.0)
[2018-02-11 07:08] LABS: CHLORIDE 105 MEQ/L (98-107); SODIUM (NA) 139 MEQ/L (136-145)
[2018-02-11 07:17] LABS: ALBUMIN 3.2 GM/DL (3.4-5.0); ALKALINE PHOSPHATASE 64 U/L (45-117); AST (GOT) 17 U/L (15-37); BICARBONATE 26.5 MEQ/L (21.0-32.0); BLOOD UREA NITROGEN 21 MG/DL (7-18); CREATININE 0.59 MG/DL (0.50-1.00); GLOMERULAR FILTRATION RATE 102 ML/MIN (>89); GLUCOSE,RANDOM 155 MG/DL (74-106); TOTAL BILIRUBIN ADULT 0.3 MG/DL (0.2-1.0)
[2018-02-11 07:48] LABS: ALT (GPT) 22 U/L (10-53)
[2018-02-11 08:32] VITALS: BP 116/58; PULSE 108; RESP 16; TEMP 98.2; O2SAT 96
[2018-02-11] MEDS: SODIUM CHLORIDE 0.9% FLUSH 10 ML FLUSH IV FLUSH SCH ×2 (08:48→21:47)
[2018-02-11] MEDS: DOCUSATE SODIUM 50 MG/SENNA 8.6 MG TAB PO SCH ×3 (08:49→21:47)
[2018-02-11] MEDS: HEPARIN SODIUM - SQ 10,000 UNITS/ML VIAL SQ SCH ×2 (08:49→21:55)
[2018-02-11] MEDS ORDERED: DEXTROSE 50% IN WATER 50 ML VIAL(D50) IV PUSH PRN (11:00)
[2018-02-11] MEDS ORDERED: GLUCAGON 1 MG/ML VIAL OTHER PRN (11:00)
[2018-02-11] MEDS ORDERED: NON-FORMULARY DRUG (Alpha Lipoic Acid 200 MG) PO SCH (11:00)
--- NOTE | 2018-02-11 11:06 | HHI.HP ---
[facility] Service [facility] Primary Care Physician Otoniel Patino MD Admission Diagnosis acute L femur fx, unable to care for self or transfer Diagnoses: Travel History International Travel<30 Days: No Contact w/Intl Traveler <30 Da: No Traveled to Known Affected Are: No History of Present Illness Mrs. Gee is a 67-year-old female. She has a history of spina bifida and has immobility at baseline. Her baseline is a power mobility device with inability to transfer back and forth with assistance. She fell yesterday and has fractured her distal femur. When seen she is not in pain. No other complaints at this time. Other pertinent baseline medical conditions are diabetes mellitus type 2 and hypertension. Review of Systems Constitutional: DENIES: Fever Respiratory: DENIES: Cough, Wheezing, Shortness of breath Cardiovascular: DENIES: Chest pain, Palpitations, Syncope Gastrointestinal: DENIES: Abdominal pain, Black stools, Bloody stools Musculoskeletal: COMPLAINS OF: Joint pain, Muscle aches, Stiffness, Joint Swelling Integumentary: DENIES: Abnormal pigmentation, Pruritus, Rash, Nail changes Hematologic/lymphatic: DENIES: Bruising, Lymphadenopathy Immunologic/allergic: DENIES: Eczema, Urticaria Neurologic: COMPLAINS OF: Abnormal gait, DENIES: Headache, Paresthesias Psychiatric: DENIES: Anxiety, Confusion, Hallucinations Except as stated in HPI: all other systems reviewed are Neg Past Family Social History Past Medical History Arthritis HTN Type 2 DM Umbilical Hernia GERD Kidney Stones Scoliosis s/p 10 level vertebral fusion Spina Bifida Left hip dislocation Past Surgical History Appendectomy Bilateral ankle ORIF Bilateral carpal tunnel surgery Spina Bifida surgery as infant Reported Medications Reported Meds & Active Scripts Active Atorvastatin (Atorvastatin Calcium) 10 Mg Tab 10 Mg PO HS Vitamin D3 (Cholecalciferol) 1,000 Unit Chew 1,000 Units CHEW DAILY Reported Plavix (Clopidogrel Bisulfate) 75 Mg Tab 75 Mg PO DAILY Alpha Lipoic Acid 200 Mg Cap 200 Mg PO DIRECTED Magnesium Oxide 500 Mg Tab 500 Mg PO DAILY Calcium Citrate 250 Mg Calcium Tab 250 Mg PO DAILY Super B Complex Tablet (Folic Acid/Vit B Complex and C) 400 Mcg Tablet 1 Tab PO DAILY Glucophage (Metformin HCl) 500 Mg Tab 500 Mg PO DAILY With a meal Tradjenta (Linagliptin) 5 Mg Tab 5 Mg PO DAILY Losartan (Losartan Potassium) 50 Mg Tab 50 Mg PO DAILY Allergies: Coded Allergies: ciprofloxacin (Unverified Allergy, Severe, Diarrhea, 02/10/18) latex (Unverified Allergy, Severe, Rash, 02/10/18) tetanus immune globulin (Unverified Allergy, Severe, 02/10/18) ARM "BLEW UP", PAIN IN ARM cephalexin (Unverified Adverse Reaction, Intermediate, DIARRHEA, 02/10/18) Active Ordered Medications Administered Medications Medications (Trade) Dose Ordered Sig/Isaac Route PRN Reason Start Time Stop Time Status Last Admin Dose Admin Sodium Chloride (NS Flush) 2 ml UNSCH PRN IV FLUSH FLUSH AFTER USING IV ACCESS 02/10/18 23:00 02/11/18 04:36 Sodium Chloride (NS Flush) 2 ml BID IV FLUSH 02/11/18 09:00 02/11/18 08:48 Heparin Sodium (Porcine) (Heparin Inj) 5,000 units Q12H SQ 02/11/18 09:00 02/11/18 08:49 Morphine Sulfate (Morphine Inj) 2 mg Q3H PRN IV Pain 6-10 02/10/18 23:00 02/11/18 08:48 Cyclobenzaprine HCl (Flexeril) 10 mg Q8H PRN PO MUSCLE SPASM 02/10/18 23:00 02/10/18 23:26 Family History No family history reported Social History No smoking No illicit drug abuse Occasional alcohol use Physical Exam Vital Signs Vital Signs Date Time Temp Pulse Resp B/P (MAP) Pulse Ox O2 Delivery O2 Flow Rate FiO2 02/11/18 08:32 98.2 108 16 116/58 (77) 96 02/11/18 01:37 96.3 122 20 143/77 (99) 96 02/10/18 19:09 98.0 120 20 138/80 (99) 97 Physical Exam GENERAL: NAD, A&Ox3 HEAD: Normocephalic. NECK: Supple, trachea midline. No lymphadenopathy. EYES: No scleral icterus. No injection or drainage. CARDIOVASCULAR: Regular rate and rhythm without murmurs, gallops, or rubs. RESPIRATORY: Breath sounds equal bilaterally. No accessory muscle use. GASTROINTESTINAL: Abdomen soft, non-tender, nondistended. MUSCULOSKELETAL: No cyanosis, or edema. Limited range of motion at left leg due to pain. SKIN: Warm and dry. NEURO: No focal neurological deficitis. Laboratory Laboratory Tests Test 02/10/18 23:15 02/11/18 06:19 White Blood Count 20.7 17.9 Red Blood Count 5.01 4.47 Hemoglobin 14.8 13.5 Hematocrit 44.0 39.3 Mean Corpuscular Volume 87.7 87.9 Mean Corpuscular Hemoglobin 29.6 30.2 Mean Corpuscular Hemoglobin Concent 33.7 34.3 Red Cell Distribution Width 13.1 13.6 Platelet Count 440 377 Mean Platelet Volume 8.1 8.1 Neutrophils (%) (Auto) 75.3 73.9 Lymphocytes (%) (Auto) 16.1 12.8 Monocytes (%) (Auto) 5.0 6.7 Eosinophils (%) (Auto) 1.6 1.9 Basophils (%) (Auto) 2.0 4.7 Neutrophils # (Auto) 15.7 13.2 Lymphocytes # (Auto) 3.3 2.3 Monocytes # (Auto) 1.0 1.2 Eosinophils # (Auto) 0.3 0.3 Basophils # (Auto) 0.4 0.8 CBC Comment AUTO DIFF AUTO DIFF Differential Comment AUTO DIFF CONFIRMED AUTO DIFF CONFIRMED Platelet Estimate NORMAL NORMAL Platelet Morphology Comment NORMAL NORMAL Red Cell Morphology Comment NORMAL NORMAL Blood Urea Nitrogen 21 21 Creatinine 0.65 0.59 Random Glucose 159 155 Calcium Level 10.0 9.0 Sodium Level 140 139 Potassium Level 4.2 4.7 Chloride Level 105 105 Carbon Dioxide Level 28.2 26.5 Anion Gap 7 8 Estimat Glomerular Filtration Rate 91 102 Total Protein 7.0 Albumin 3.2 Alkaline Phosphatase 64 Aspartate Amino Transf (AST/SGOT) 17 Alanine Aminotransferase (ALT/SGPT) 22 Total Bilirubin 0.3 Result Diagram: 02/11/1861802/11/1819 Imaging Last Impressions Knee X-Ray 02/10/18 0000 Signed Impressions: Service Date/Time: Saturday, February 10, 2018 20:51 - CONCLUSION: 1. Acute fracture involving the left distal femoral metaphysis. 2. Diffuse osteoporosis. Navneet Nava MD Femur X-Ray 02/10/18 0000 Signed Impressions: Service Date/Time: Saturday, February 10, 2018 00:00 - CONCLUSION: Distal femoral metaphyseal fracture with slight impaction. MD Carrillo Bajwa VTE Risk Assessment Caprini VTE Risk Assessment: No/Low Risk (score <= 1) Caprini Risk Assessment Model Point Value = 1 Point Value = 2 Point Value = 3 Point Value = 5 Age 41-60 Minor surgery BMI > 25 kg/m2 Swollen legs Varicose veins or History of unexplained or recurrent spontaneous Oral contraceptives or hormone replacement Sepsis (< 1 month) Serious lung disease, including pneumonia (< 1 month) Abnormal pulmonary function Acute myocardial infarction Congestive heart failure (< 1 month) History of inflammatory bowel disease Medical patient at bed rest Age 61-74 Arthroscopic surgery Major open surgery (> 45 min) Laparoscopic surgery (> 45 min) Malignancy Confined to bed (> 72 hours) Immobilizing plaster cast Central venous access Age >= 75 History of VTE Family history of VTE Factor V Leiden Prothrombin [id number] Lupus anticoagulant Anticardiolipin antibodies Elevated serum homocysteine Heparin-induced thrombocytopenia Other congenital or acquired thrombophilia Stroke (< 1 month) Elective arthroplasty Hip, pelvis, or leg fracture Acute spinal cord injury (< 1 month) Prophylaxis Regimen Total Risk Factor Score Risk Level Prophylaxis Regimen 0-1 Low Early ambulation 2 Moderate Order ONE of the following: *Sequential Compression Device (SCD) *Heparin 5000 units SQ BID 3-4 Higher Order ONE of the following medications: *Heparin 5000 units SQ TID *Enoxaparin/Lovenox 40 mg SQ daily (WT < 150 kg, CrCl > 30 mL/min) *Enoxaparin/Lovenox 30 mg SQ daily (WT < 150 kg, CrCl > 10-29 mL/min) *Enoxaparin/Lovenox 30 mg SQ BID (WT < 150 kg, CrCl > 30 mL/min) AND/OR *Sequential Compression Device (SCD) 5 or more Highest Order ONE of the following medications: *Heparin 5000 units SQ TID (Preferred with Epidurals) *Enoxaparin/Lovenox 40 mg SQ daily (WT < 150 kg, CrCl > 30 mL/min) *Enoxaparin/Lovenox 30 mg SQ daily (WT < 150 kg, CrCl > 10-29 mL/min) *Enoxaparin/Lovenox 30 mg SQ BID (WT < 150 kg, CrCl > 30 mL/min) AND *Sequential Compression Device (SCD) Assessment and Plan Problem List: (1) Impaired mobility and activities of daily living ICD Code: Z74.09 - Other reduced mobility Status: Acute (2) Stroke ICD Code: I63.9 - Cerebral infarction, unspecified (3) Paraplegia ICD Code: G82.20 - Paraplegia, unspecified Status: Chronic (4) Spina bifida ICD Code: Q05.9 - Spina bifida, unspecified Status: Chronic Assessment and Plan 67-year-old female admitted secondary to distal left femur fracture with impaction Distal left femur fracture Osteoarthritis Bedrest Pain medications as needed Orthopedic surgeon consult Hold Plavix for now, resume if there is to be no surgery or postop History of spina bifida History of left hip dislocation Scoliosis, history of 10 level vertebral fusion Chronic immobility This may complicate the patient's rehab course Goal is not ambulation Goal is set at ability to transfer back and forth to her mobility device History of CVA Plavix on hold for possibility of surgery Lovenox started Diabetes mellitus type 2 Follow blood sugars Insulin sliding scale Diabetic diet Hypertension Continue baseline treatment Follow blood pressures Adjust treatments as needed Umbilical Hernia GERD Kidney Stones Asymptomatic DVT prophylaxis Lovenox Physician Certification 2 Midnight Certification Type: Admission for Inpatient Services Order for Inpatient Services The services are ordered in accordance with Medicare regulations or non- Medicare payer requirements, as applicable. In the case of services not specified as inpatient-only, they are appropriately provided as inpatient services in accordance with the 2-midnight benchmark. Estimated LOS (days): 3 days is the estimated time the patient will need to remain in the hospital, assuming treatment plan goals are met and no additional complications. Post-Hospital Plan: Home Josh Tavarez MD February 11, 2018 11:06
[2018-02-11] MEDS: INSULIN ASPART SUPPLEMENTAL SCALE SQ SCH ×3 (12:00→21:55)
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
[2018-02-11 12:55] VITALS: BP 129/77; PULSE 101; RESP 18; TEMP 97
[2018-02-11 15:11] LABS: BILIRUBIN, URINE NEG (NEG); BLOOD, URINE LARGE (NEG); GLUCOSE,URINE NEG (NEG); KETONE, URINE NEG (NEG); NITRITE,URINE POS (NEG); URINE LEUKOCYTE ESTERASE LARGE (NEG)
[2018-02-11 15:22] LABS: BACTERIA, URINE MOD /hpf; SQUAMOUS EPITHELIAL CELL URINE 0-5 /hpf (0-5); WBC, URINE INNUM /hpf (0-5)
[2018-02-11 17:03] VITALS: BP 116/56; PULSE 114; RESP 17; TEMP 99.3; O2SAT 96
[2018-02-11 20:00] VITALS: BP 120/69; PULSE 116; RESP 20; TEMP 99.7; O2SAT 95
[2018-02-11] MEDS: ATORVASTATIN 10 MG TAB PO SCH (21:47)
[2018-02-12] VITALS: BP 121/62; PULSE 110; RESP 20; TEMP 96; O2SAT 94
[2018-02-12 06:49] LABS: AUTOMATED NEUTROPHIL # 9.3 TH/MM3 (1.8-7.7); BASOPHIL # 0.1 TH/MM3 (0-0.2); BASOPHIL % 0.4 % (0.0-2.0); EOSINOPHIL # 0.3 TH/MM3 (0-0.4); EOSINOPHIL % 2.2 % (0.0-4.0); HEMATOCRIT 35.5 % (35.0-46.0); HEMOGLOBIN 12.1 GM/DL (11.6-15.3); LYMPH % 18.3 % (9.0-44.0); LYMPHOCYTE # 2.4 TH/MM3 (1.0-4.8); MEAN CELL VOLUME 87.3 FL (80.0-100.0); MEAN CORPUSCULAR HEMOGLOBIN 29.7 PG (27.0-34.0); MEAN PLATELET VOLUME 7.9 FL (7.0-11.0); MONO % 8.2 % (0.0-8.0); MONOCYTE # 1.1 TH/MM3 (0-0.9); NEUT % 70.9 % (16.0-70.0); PLATELET COUNT 311 TH/MM3 (150-450); RED BLOOD COUNT 4.06 MIL/MM3 (4.00-5.30); RED CELL DISTRIBUTION WIDTH 13.1 % (11.6-17.2); WHITE BLOOD COUNT 13.2 TH/MM3 (4.0-11.0)
[2018-02-12 06:55] LABS: CHLORIDE 103 MEQ/L (98-107); SODIUM (NA) 137 MEQ/L (136-145)
[2018-02-12 07:01] LABS: CALCIUM 8.7 MG/DL (8.5-10.1)
[2018-02-12 07:02] LABS: ALBUMIN 2.9 GM/DL (3.4-5.0); BICARBONATE 29.1 MEQ/L (21.0-32.0); BLOOD UREA NITROGEN 17 MG/DL (7-18); GLUCOSE,RANDOM 150 MG/DL (74-106)
[2018-02-12 07:05] LABS: ALT (GPT) 16 U/L (10-53); AST (GOT) 6 U/L (15-37); CREATININE 0.54 MG/DL (0.50-1.00); GLOMERULAR FILTRATION RATE 113 ML/MIN (>89)
[2018-02-12 07:07] LABS: TOTAL PROTEIN 6.7 GM/DL (6.4-8.2)
[2018-02-12 07:08] LABS: ALKALINE PHOSPHATASE 49 U/L (45-117)
[2018-02-12 07:14] LABS: TOTAL BILIRUBIN ADULT 0.5 MG/DL (0.2-1.0)
[2018-02-12 08:00] VITALS: BP 137/65; PULSE 117; RESP 18; TEMP 98.2; O2SAT 92
[2018-02-12] MEDS: INSULIN ASPART SUPPLEMENTAL SCALE SQ SCH ×4 (08:00→21:42)
[2018-02-12] MEDS: SODIUM CHLORIDE 0.9% FLUSH 10 ML FLUSH IV FLUSH SCH ×2 (08:15→19:36)
[2018-02-12] MEDS: CHOLECALCIFEROL (VIT D3) 1000 UNIT TAB PO SCH (08:16)
[2018-02-12] MEDS: MAGNESIUM OXIDE 400 MG TAB PO SCH (08:16)
[2018-02-12] MEDS: LOSARTAN 50 MG TAB PO SCH (08:16)
[2018-02-12] MEDS: DOCUSATE SODIUM 50 MG/SENNA 8.6 MG TAB PO SCH ×2 (08:17→21:00)
[2018-02-12] MEDS: VITAMIN B CMPLX/VITC/FOLIC AC CAP PO SCH (08:20)
[2018-02-12] MEDS: HEPARIN SODIUM - SQ 10,000 UNITS/ML VIAL SQ SCH ×2 (08:21→21:44)
[2018-02-12] MEDS: MORPHINE SULFATE 4 MG/ML INJ IV PRN ×2 (08:22→19:36)
[2018-02-12] MEDS ORDERED: CALCIUM CITRATE 250 MG PO SCH (09:00)
--- NOTE | 2018-02-12 11:28 | HHI.PR ---
Subjective Remarks Patient seen and examined today for follow-up on left femur fracture. Patient is unable to care for herself at home. Awaiting case management for long-term placement. Patient remains afebrile. Patient does have chronic indwelling Flores which was just changed a week ago. Objective Vitals Vital Signs Date Time Temp Pulse Resp B/P (MAP) Pulse Ox O2 Delivery O2 Flow Rate FiO2 02/12/18 08:27 18 02/12/18 08:00 98.2 117 18 137/65 (89) 92 02/12/18 00:00 96.0 110 20 121/62 (81) 94 02/11/18 20:00 99.7 116 20 120/69 (86) 95 02/11/18 17:03 99.3 114 17 116/56 (76) 96 02/11/18 12:55 97.0 101 18 129/77 (94) I/O 02/11/18 02/11/18 02/11/18 02/12/18 02/12/18 02/12/18 07:00 15:00 23:00 07:00 15:00 23:00 Intake Total 1000 ml 300 ml Output Total 700 ml Balance 300 ml 300 ml Intake Oral 1000 ml 300 ml Output Urine Total 700 ml Result Diagram: 02/12/1861102/12/18 0612 Objective Remarks GENERAL: Well-developed, well-nourished, in no acute distress. alert and orientated HEENT: Head is normocephalic without any lesions or masses noted. Facial features are symmetric. Eyes: Extraocular muscles are intact. Conjunctivae were clear. NECK: Supple without any masses. Trachea midline no deviation. No JVD, CARDIAC: Regular rhythm, regular rate. S1/S2 are heard. No murmurs gallops or rubs. LUNGS: Clear to auscultation bilaterally. No wheeze, rhonchi or rales. No use of accessory muscles on inspiration or expiration. ABDOMEN: Soft, nontender. Nondistended. Bowel sounds heard in all 4 quadrants. No organomegaly or masses. Negative rebound, negative guarding EXTREMITIES: No edema, pulses are equal bilaterally. No cyanosis or clubbing NEUROLOGY: Mood and affect appear appropriate. Cranial nerves II through XII grossly intact. Moving all extremities, speech is clear LEFT LOWER EXTREMITY. Neurologically and vascularly intact. Limited range of motion due to pain. Urinary Catheter: No Vascular Central Line Catheter: No A/P Assessment and Plan Distal left femur fracture in a patient with history of spina bifida, left hip dislocation, scoliosis, chronic immobility -Orthopedic consultation has been performed and recommending nonoperative treatment -Continue pain control -Orthopedic recommending nonweightbearing, no range of motion of the left lower extremity, physical therapy to work with transfers. -Goal is non-ambulation -Goal is to set at ability to transfer back and forth into her mobility device Urinary tract infection versus Flores contamination -Patient with chronic indwelling Flores which has been this change 1 week ago -Patient is asymptomatic for any infections, she is afebrile, no leukocytosis, nonpainful -Patient deferring replacement of Flores catheter with fresh specimen acquisition -We will respect patient's wishes, only treat urinary tract infection if patient is symptomatic Hypertension, history of CVA -Continue home medications -Resume Plavix Diabetes -Accu-Cheks with sliding scale insulin -Diabetic diet DVT prevention -Subcutaneous Lovenox Discharge Planning Discharge planning once arranged by case management to local retirement facility with outpatient follow-up by orthopedist Donavan Somers February 12, 2018 11:28
[2018-02-12] MEDS ORDERED: ACETAMINOPHEN/HYDROcodone 325 MG/5 MG TAB PO PRN (11:30)
[2018-02-12] MEDS ORDERED: ACETAMINOPHEN/HYDROcodone 325 MG/7.5 MG TAB PO PRN (11:30)
[2018-02-12 12:00] VITALS: BP 114/59; PULSE 103; RESP 18; TEMP 98.4; O2SAT 92
[2018-02-12 16:00] VITALS: BP 115/57; PULSE 133; RESP 16; TEMP 97.3; O2SAT 93
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
[2018-02-12] MEDS: CLOPIDOGREL 75 MG TAB PO SCH (17:09)
--- NOTE | 2018-02-12 17:15 | RADRPT ---
EXAM DATE/TIME: 02/12/2018 16:31 [facility] COMPARISON: KNEE LEFT COMPLETE (4VWS), February 10, 2018, 20:51. INDICATIONS : Evaluate left femur fracture. MEDICAL HISTORY : Hypertension. Diabetes mellitus type 2. SURGICAL HISTORY : Appendectomy. Umbilical hernia repair. Spinal fusion. ENCOUNTER: Subsequent ACUITY: 2 days PAIN SCORE: 5/10 LOCATION: Left knee. FINDINGS: A multipart slightly impacted fracture of the distal left femur is again noted with little or no garcia ge in configuration from prior exam. The patient is a knee brace. The tibia is intact. There is minim al cortical angulation of the proximal fibula which may represent nondisplaced fracture at this site. Patella appears grossly intact. CONCLUSION: Femur fracture in knee brace without significant change in configuration. Anuel Varma MD on February 12, 2018 at 17:05 Board Certified Radiologist. This report was verified electronically.
[2018-02-12 20:00] VITALS: BP 129/61; PULSE 124; RESP 20; TEMP 99.5; O2SAT 94
[2018-02-12] MEDS: ATORVASTATIN 10 MG TAB PO SCH (21:44)
[2018-02-13] VITALS: BP 127/70; PULSE 103; RESP 20; TEMP 98.9; O2SAT 98
[2018-02-13 04:00] VITALS: BP 117/57; PULSE 99; RESP 20; TEMP 96.5; O2SAT 95
[2018-02-13] MEDS: MORPHINE SULFATE 4 MG/ML INJ IV PRN (07:38)
[2018-02-13 07:50] VITALS: BP 107/59; PULSE 95; RESP 20; TEMP 96.2; O2SAT 94
[2018-02-13] MEDS: INSULIN ASPART SUPPLEMENTAL SCALE SQ SCH ×3 (08:38→17:00)
[2018-02-13] MEDS: HEPARIN SODIUM - SQ 10,000 UNITS/ML VIAL SQ SCH (08:39)
[2018-02-13] MEDS: SODIUM CHLORIDE 0.9% FLUSH 10 ML FLUSH IV FLUSH SCH (08:39)
[2018-02-13] MEDS: LOSARTAN 50 MG TAB PO SCH (08:40)
[2018-02-13] MEDS: MAGNESIUM OXIDE 400 MG TAB PO SCH (08:40)
[2018-02-13] MEDS: CHOLECALCIFEROL (VIT D3) 1000 UNIT TAB PO SCH (08:40)
[2018-02-13] MEDS: DOCUSATE SODIUM 50 MG/SENNA 8.6 MG TAB PO SCH (08:40)
[2018-02-13] MEDS: CLOPIDOGREL 75 MG TAB PO SCH (08:40)
[2018-02-13] MEDS: VITAMIN B CMPLX/VITC/FOLIC AC CAP PO SCH (08:41)
[2018-02-13] MEDS ORDERED: CYCL10TA PO (10:57)
[2018-02-13] MEDS ORDERED: HYDR-3516 PO (10:57)
--- NOTE | 2018-02-13 10:57 | HHI.DCPOC ---
Discharge Care Plan Diagnosis: (1) Femur fracture, left Goals to Promote Your Health * To prevent worsening of your condition and complications * To maintain your health at the optimal level Directions to Meet Your Goals Take your medications as prescribed Follow your dietary instruction Follow activity as directed Keep your appointments as scheduled Take your immunizations and boosters as scheduled If your symptoms worsen call your PCP, if no PCP go to Urgent Care Center or Emergency Room Smoking is Dangerous to Your Health. Avoid second hand smoke Call the 24-hour hour crisis hotline for domestic abuse at Donavan Somers February 13, 2018 10:57
--- NOTE | 2018-02-13 11:06 | HHI.DS ---
Discharge Summary Admission Date February 10, 2018 at 22:46 Discharge Date: February 13, 2018 Admitting Diagnosis acute L femur fx, unable to care for self or transfer (1) Femur fracture, left ICD Code: S72.92XA - Unspecified fracture of left femur, initial encounter for closed fracture Status: Acute (2) Impaired mobility and activities of daily living ICD Code: Z74.09 - Other reduced mobility Status: Acute (3) Spina bifida ICD Code: Q05.9 - Spina bifida, unspecified Status: Chronic Procedures None Brief History - From Admission Mrs. Gee is a 67-year-old female. She has a history of spina bifida and has immobility at baseline. Her baseline is a power mobility device with inability to transfer back and forth with assistance. She fell yesterday and has fractured her distal femur. When seen she is not in pain. No other complaints at this time. Other pertinent baseline medical conditions are diabetes mellitus type 2 and hypertension. CBC/BMP: 02/12/18 0612 02/12/18 0612 Significant Findings Laboratory Tests Test 02/10/18 23:15 02/11/18 06:19 02/11/18 15:08 02/12/18 06:12 White Blood Count 20.7 TH/MM3 (4.0-11.0) 17.9 TH/MM3 (4.0-11.0) 13.2 TH/MM3 (4.0-11.0) Neutrophils (%) (Auto) 75.3 % (16.0-70.0) 73.9 % (16.0-70.0) 70.9 % (16.0-70.0) Neutrophils # (Auto) 15.7 TH/MM3 (1.8-7.7) 13.2 TH/MM3 (1.8-7.7) 9.3 TH/MM3 (1.8-7.7) Monocytes # (Auto) 1.0 TH/MM3 (0-0.9) 1.2 TH/MM3 (0-0.9) 1.1 TH/MM3 (0-0.9) Basophils # (Auto) 0.4 TH/MM3 (0-0.2) 0.8 TH/MM3 (0-0.2) Blood Urea Nitrogen 21 MG/DL (7-18) 21 MG/DL (7-18) Random Glucose 159 MG/DL (74-106) 155 MG/DL (74-106) 150 MG/DL (74-106) Basophils (%) (Auto) 4.7 % (0.0-2.0) Albumin 3.2 GM/DL (3.4-5.0) 2.9 GM/DL (3.4-5.0) Urine Protein 100 mg/dL (NEG-TRACE) Urine Occult Blood LARGE (NEG) Urine Nitrite POS (NEG) Urine Leukocyte Esterase LARGE (NEG) Urine WBC INNUM /hpf (0-5) Urine Bacteria MOD /hpf (NONE) Monocytes (%) (Auto) 8.2 % (0.0-8.0) Aspartate Amino Transf (AST/SGOT) 6 U/L (15-37) Imaging Last Impressions Knee X-Ray 02/12/18 0000 Signed Impressions: Service Date/Time: Monday, February 12, 2018 16:31 - CONCLUSION: Femur fracture in knee brace without significant change in configuration. Anuel Varma MD Femur X-Ray 02/10/18 0000 Signed Impressions: Service Date/Time: Saturday, February 10, 2018 00:00 - CONCLUSION: Distal femoral metaphyseal fracture with slight impaction. Yanick Raymond MD PE at Discharge GENERAL: Well-developed, well-nourished, in no acute distress. alert and orientated HEENT: Head is normocephalic without any lesions or masses noted. Facial features are symmetric. Eyes: Extraocular muscles are intact. Conjunctivae were clear. NECK: Supple without any masses. Trachea midline no deviation. No JVD, CARDIAC: Regular rhythm, regular rate. S1/S2 are heard. No murmurs gallops or rubs. LUNGS: Clear to auscultation bilaterally. No wheeze, rhonchi or rales. No use of accessory muscles on inspiration or expiration. ABDOMEN: Soft, nontender. Nondistended. Bowel sounds heard in all 4 quadrants. No organomegaly or masses. Negative rebound, negative guarding EXTREMITIES: No edema, pulses are equal bilaterally. No cyanosis or clubbing NEUROLOGY: Mood and affect appear appropriate. Cranial nerves II through XII grossly intact. Moving all extremities, speech is clear LEFT LOWER EXTREMITY. Neurologically and vascularly intact. Limited range of motion due to pain. Hospital Course This is a rather unfortunate 67-year-old female with known history of spinal bifida, nonambulatory, only transitions herself back and forth to her mobility devices. Apparently the patient fell out of her motorized wheelchair and she landed on her knee and came to emergency department for evaluation. Patient was found to have a acute distal femur fracture and was recommended admission to the hospital. Patient had workup with x-rays, orthopedic evaluation who recommended nonsurgical treatment at this time. Patient is with leg brace. Since the patient is unable to transfer back and forth to her mobility devices due to the acute fracture patient will require rehab placement. During patient stay in the hospital her pain was controlled. She does have a chronic indwelling Flores in which her urinalysis did indicate pyuria, however she is asymptomatic. As requested that we can change her Flores and obtain clean sample. Patient deferred changing of her Flores. She indicates that it is too difficult to change when she is in so much pain. The Flores was just changed 1 week ago. Usually she had a done by her urologist and/or home health care. Patient clinically stable at this time. We will plan discharge to group home facility once arrangements made. Pt Condition on Discharge: Stable Discharge Disposition: Discharge to SNF Discharge Time: > 30 minutes Discharge Instructions DIET: Follow Instructions for: As Tolerated, No Restrictions Activities you can perform: Non Weight Bearing Follow up Referrals: Orthopedics - 1 Week with Moose Jones MD PCP Follow-up - 1 Week New Medications: Cyclobenzaprine (Flexeril) 10 Mg Tab 10 MG PO Q8H PRN for MUSCLE SPASM for 3 Days, #9 TAB Hydrocodone/Acetaminophen (Hydrocodone-Acetamin 5-325 mg) 5 Mg-325 Mg Tablet 1 TAB PO Q6HR PRN for Pain for 3 Days, TAB Continued Medications: Alpha Lipoic Acid (Alpha Lipoic Acid) 200 Mg Cap 200 MG PO DIRECTED for Nutritional Supplement, CAP 0 Refills Atorvastatin (Atorvastatin) 10 Mg Tab 10 MG PO HS for Cholesterol Management, #90 TAB 6 Refills Calcium Citrate (Calcium Citrate) 250 Mg Calcium Tab 250 MG PO DAILY for Calcium Supplement, TAB 0 Refills Cholecalciferol (Vitamin D3) 1,000 Unit Chew 1000 UNITS CHEW DAILY for Nutritional Supplement, #1 BOTTLE 0 Refills Clopidogrel (Plavix) 75 Mg Tab 75 MG PO DAILY for Blood Clot Prevention, #30 TAB 0 Refills Folic Acid/Vit B Complex and C (Super B Complex Tablet) 400 Mcg Tablet 1 TAB PO DAILY Linagliptin (Tradjenta) 5 Mg Tab 5 MG PO DAILY for Blood Sugar Management, #30 TAB 0 Refills Losartan (Losartan) 50 Mg Tab 50 MG PO DAILY for Blood Pressure Management, #30 TAB 0 Refills Magnesium Oxide (Magnesium Oxide) 500 Mg Tab 500 MG PO DAILY, TAB 0 Refills Metformin (Glucophage) 500 Mg Tab 500 MG PO DAILY for Blood Sugar Management, #30 TAB 0 Refills With a meal Donavan Somers February 13, 2018 11:06
[2018-02-13 11:50] VITALS: BP 108/59; PULSE 109; RESP 20; TEMP 97.9; O2SAT 95
--- NOTE | 2018-02-13 15:23 | RADRPT ---
EXAM DATE/TIME: 02/13/2018 13:26 [facility] COMPARISON: KNEE LEFT COMPLETE (4VWS), February 10, 2018, 20:51. INDICATIONS : Left distal femue fracture. MEDICAL HISTORY : Hypertension. Diabetes mellitus type 2. SURGICAL HISTORY : Spina Bifida surgery ENCOUNTER: Subsequent ACUITY: 3 days PAIN SCORE: 9/10 LOCATION: Left distal femur FINDINGS: There is fracture of the distal femur involving the lateral femoral condyle extending intra-articular . Alignment is reasonably anatomic. Large joint effusion is evident. CONCLUSION: Fracture as above, in anatomic alignment in brace. Iam Shields MD FACR on February 13, 2018 at 15:20 Board Certified Radiologist. This report was verified electronically.
[2018-02-13 15:50] VITALS: BP 124/63; PULSE 112; RESP 20; TEMP 99.2; O2SAT 95
== END 2018-02-13 18:10 | DRG 534 ==
LOC: PHED 19:02 → PHEDA 22:46 → PH3B 02-11 00:11
PROVIDERS: ADMIT Hospitalist; ATTEND Hospitalist
DX: S72.492A Other fracture of lower end of left femur, initial encounter for closed fracture (principal); G82.20 Paraplegia, unspecified; E11.42 Type 2 diabetes mellitus with diabetic polyneuropathy; N39.0 Urinary tract infection, site not specified; M41.9 Scoliosis, unspecified; I10 Essential (primary) hypertension; K21.9 Gastro-esophageal reflux disease without esophagitis; Q05.9 Spina bifida, unspecified; R26.9 Unspecified abnormalities of gait and mobility; I69.365 Other paralytic syndrome following cerebral infarction, bilateral; K42.9 Umbilical hernia without obstruction or gangrene; M19.90 Unspecified osteoarthritis, unspecified site; V00.811A Fall from moving wheelchair (powered), initial encounter; Y92.480 Sidewalk as the place of occurrence of the external cause; Z79.84 Long term (current) use of oral hypoglycemic drugs; Z88.1 Allergy status to other antibiotic agents; Z91.040 Latex allergy status; Z98.1 Arthrodesis status
CPT/HCPCS: 73552; 73560; 73564; 80048; 80053; 81001; 82948; 85025; 87077; 87086; 87186; 99285; J1644; J1815; J2270; L1845